=== PATIENT | female | born 1955 | race Caucasian/White ===

== ENCOUNTER 2020-03-28 08:00 | Outpatient (CLI) | payer MEDICARE, MEDICAID, SELFPAY ==
--- NOTE | 2020-03-28 08:10 | USCV_ITS ---
Saskia Carrero Age: 64 Gender: F : 1955 Exam Date: 03/28/2020 08:22 Ordering Phys: Jm Marlow DO Technologist: Martha Chavez [place] [facility] [place]: EDEMA HISTORY: Leg swelling. PROCEDURES: Venous duplex imaging was performed in bilateral lower extremities. The following venous structures were evaluated: common femoral vein, profunda vein, proximal portion of the greater saphenous vein, superficial femoral vein, and the popliteal vein. In addition, the posterior tibial and peroneal trunk were evaluated. Serial compression, augmentation maneuvers, and spectral Doppler flow evaluation were performed. FINDINGS: No DVT seen in any vessel examined. CONCLUSIONS Negative bilateral lower extremity deep venous ultrasound. Dr. Dorothea Hennessy MD (Electronically Signed) Final Date: 28 March 2020 09:26 S
== END 2020-03-28 08:01 | disposition home or self-care (01) ==
LOC: RAD 08:08
PROVIDERS: Family Provider Family Medicine; Visit Provider Family Medicine
DX: R60.9 Edema, unspecified (principal); I73.00 Raynaud's syndrome without gangrene; R73.9 Hyperglycemia, unspecified; I73.9 Peripheral vascular disease, unspecified; E03.9 Hypothyroidism, unspecified; M79.89 Other specified soft tissue disorders
CPT/HCPCS: 93970

== ENCOUNTER 2020-03-29 08:31 | Outpatient (CLI) | payer MEDICARE, MEDICAID, SELFPAY ==
--- NOTE | 2020-03-29 08:52 | USCV_ITS ---
Saskia Carrero Age: 64 Gender: F : 1955 Exam Date: 03/29/2020 08:42 Ordering Phys: Jm Marlow DO Technologist: Exam Location[place] [facility] [place]ication: RAYNAUD'S, HYPERTENSION, PVD RIGHT LEFT Brachial 170.00 mmHg Brachial 171.00 mmHg Pressure (mmHg) Waveform Pressure (mmHg) Waveform TALENT ACQUISITION LEAD 200.00 174.00 DPA 1.59 Ankle/Brachial Index 1.17 133.00 Pre-Exercise Toe Pressure 159.00 0.78 Pre-Exercise Toe/Brachial Index 0.93 FINDINGS Supernormal resting RUTH on the right side Normal resting RUTH on the left side Normal resting TBIs bilaterally CONCLUSIONS No evidence of any significant arterial obstruction, based on the above findings. Dr Xavier Escalante MD [facility] (Electronically Signed) Final Date: 29 March 2020 17:56 S
== END 2020-03-29 08:32 | disposition home or self-care (01) ==
LOC: RAD 08:37
PROVIDERS: PCP Family Medicine; Visit Provider Family Medicine
DX: R60.9 Edema, unspecified (principal); I73.00 Raynaud's syndrome without gangrene; R73.9 Hyperglycemia, unspecified; I10 Essential (primary) hypertension; I73.9 Peripheral vascular disease, unspecified; E03.9 Hypothyroidism, unspecified
CPT/HCPCS: 93922

== ENCOUNTER → 2021-07-03 13:27 | Outpatient (BNVA) | payer MEDICARE, MEDICAID, SELFPAY | PROVIDERS: PCP Family Medicine; Visit Provider Nurse Practitioner Family | DX: R32 Unspecified urinary incontinence (principal); R39.16 Straining to void; R33.9 Retention of urine, unspecified | CPT/HCPCS: 81003 ==

== ENCOUNTER → 2021-08-07 13:24 | Outpatient (BNVA) | payer MEDICARE, MEDICAID, SELFPAY | PROVIDERS: PCP Family Medicine; Visit Provider Nurse Practitioner Family | DX: R33.9 Retention of urine, unspecified (principal) | CPT/HCPCS: 81003 ==

== ENCOUNTER → 2022-03-19 12:55 | Outpatient (BNVA) | payer MEDICARE, MEDICAID, SELFPAY | PROVIDERS: PCP Family Medicine; Visit Provider Urology | DX: R33.9 Retention of urine, unspecified (principal); R39.16 Straining to void; R32 Unspecified urinary incontinence | CPT/HCPCS: 51798; 81003; 99213 ==

== ENCOUNTER 2022-05-22 11:41 | Observation (INO) | payer MEDICARE, MEDICAID, SELFPAY ==
[2022-05-22] VITALS (32 sets, daily range): BP systolic 137–186; BP diastolic 66–98; PULSE 48–79; RESP 8–22; TEMP 36.3–36.8; O2SAT 96–100
--- NOTE | 2022-05-22 11:56 | W.ED.ARRPALP ---
HPI - Arrhythmia/Palpitations General: Chief Complaint: Arrhythmia/Palpitations Stated Complaint: AFIB Time Seen by Provider: 05/22/22 11:53 History of Present Illness: Ms. Carrero is a 66-year-old lady with complex past medical history including history of brain tumor status postresection, history of Silvia's, history of ophthalmologic issues who presents to the emergency department due to new onset A. fib. She was scheduled for a orbital decompression by surgery in [place] earlier today however during preoperative evaluation was found to have atrial fibrillation which she does not have a history of. She does not know specifically when this started however for approximately 1 month has had more dyspnea on exertion and shortness of breath at rest. Additionally she has noticed more leg swelling as well as occasional fluttering sensation in her chest if she is real still. She has had to sleep upright in recliner due to symptoms. Overall course has worsened. Intensity is moderate. No other specific changes in health, exacerbating, or alleviating factors identified. Onset (ago): week(s) Duration: constant Severity: moderate Review of Systems General: Reports: 10 or more systems reviewed and unremarkable except in HPI and below PFSH ED PFSH: Medical History (Updated 05/25/22 @ 16:57 by Barry Enriquez NP) Cardiomegaly Edema, peripheral Elevated brain natriuretic peptide (BNP) level Glaucoma Silvia's disease History of brain tumor REMOVAL Incomplete bladder emptying New onset a-fib Raynaud disease Sjogrens syndrome Straining on urination Urinary incontinence Post void leakage consistent with Vaginal Voiding. Better with positional changes UUI: better with volume management Surgical History History of colon resection Hx of eye surgery MULTIPLE EYE SURGERIES Hx of hysterectomy Hx of skin graft Family History Father , AT AGE 37 HEART ATTACK CAD (coronary artery disease) MOTHER AT AGE 87 FLU Social History Smoking and tobacco status: never smoked Alcohol intake: former Marital status: Single Current occupational status: disabled History of recent travel: No Physical Exam Const: COMMON NORMALS: alert GENERAL APPEARANCE: cooperative and well developed HENMT: COMMON NORMALS: normocephalic and atraumatic HEAD & SCALP: normocephalic and atraumatic THROAT: posterior oropharynx normal Eye: COMMON NORMALS: conjunctivae normal CONJUNCTIVA: Yes conjunctivae normal SCLERA: sclerae normal Neck/C-Spine: COMMON NORMALS: supple GENERAL: Yes trachea midline Resp: COMMON NORMALS: clear to auscultation bilaterally EFFORT & INSPECTION: Yes able to speak in complete sentences AUSCULTATION: clear to auscultation bilaterally Cardio: RATE: bradycardic RHYTHM: abnormal rhythm irregularly irregular GI: COMMON NORMALS: Soft to palpation PALPATION: Yes Soft to palpation and No Tenderness to palpation present (GI) PERCUSSION: normal to percussion Extremity: GENERAL: Yes normal exam except as noted and Yes edema (1+ edema) Neuro: COMMON NORMALS: moves all extremities SENSORIUM/ORIENTATION: Yes alert and No Orientation impaired Psych: COMMON NORMALS: mental status grossly normal and Normal thought process present THOUGHT PROCESS: Normal thought process present Course ED course: - Patient was seen and evaluated by me at bedside - Patient placed on cardiac monitors, IV access obtained - Initial evaluation notable for exam as above. - Labs and xrays personally interpreted by me. EKG is notable for atrial fibrillation with slow ventricular response, nonspecific ST segment abnormalities. No STEMI. - Labs notable for no acute hematologic or metabolic abnormalities to explain symptoms. Delta troponin negative. BNP is elevated. In the absence of symptoms urinalysis likely not consistent with UTI. - Imaging notable for cardiomegaly without lobar consolidation or pneumothorax. CT head negative for acute intracranial hemorrhage or mass. - Upon serial reexamination after treatment the patient was similar - Based on patient history, evaluation, and testing as interpreted the most likely cause of the patient's condition is new onset A. fib - The results of ED evaluation were discussed with the patient including plan for admission due to requirement for level of care not available if discharged to prevent significant worsening/deterioration. - Admitting service was contacted and Dr Hernandez with the hospitalist service agreed to admit the patient - Patient was admitted without further deterioration or significant events. Note: Click bubbles or prepopulated alejandre in note writing are used for assistance with data collection and billing and are inherently more limited than narrative and other text portions of this note. Please use narrative for additional clinical history and defer to narrative/free test for any case of contradictory information. If information appears in only free text or click bubble it should be considered present or absent as reported. Please contact note technical publications writer for clarifications of clinical information or contradictory information. MDM is a brief summary, contradictory or erroneous seeming information should be clarified and full note should be reviewed. Vital Signs: Vital signs: Vital Signs Temperature 98.1 F 05/23/22 08:00 Pulse Rate 58 L 05/23/22 14:24 Respiratory Rate 16 05/23/22 14:24 Blood Pressure 155/88 05/23/22 14:24 Pulse Oximetry 96 05/23/22 14:24 Oxygen Delivery Me thod 05/23/22 12:00 MDM - Arrhythmia/Palpitations Medical Decision Making 66-year-old lady presenting with generalized items about new A. fib with slow ventricular response. admitted for further management. Medical Records I reviewed the patient's medical records. Lab Data I reviewed the patient's lab results. : 05/23/22 04:17 05/23/22 04:17 Radiology Impressions Chest X-Ray 05/22/22 12:33 Impression: Cardiomegaly. Head CT 05/22/22 14:16 IMPRESSION: No acute intracranial abnormality. Chronic microvascular ischemic changes. Venous Duplex 05/23/22 17:24 IMPRESSION: Positive for deep venous thrombosis within the right popliteal vein. ADDENDUM: 05/23/22 0844 THIS REPORT CONTAINS FINDINGS THAT MAY BE CRITICAL TO PATIENT CARE. The findings were verbally communicated via telephone conference with BI HERNANDEZ at 8:43 AM CDT on 05/23/2022. The findings were acknowledged and understood. Laboratory Results WBC 5.7 10^3/uL (4.0-10.0) 05/22/22 12:39 RBC 4.60 10^6/uL (4.1-5.3) 05/22/22 12:39 Hgb 13.5 g/dL (11.5-15.3) 05/22/22 12:39 Hct 42.7 % (37.0-47.0) 05/22/22 12:39 MCV 92.8 fl (81-99) 05/22/22 12:39 MCH 29.3 pg (28.0-34.0) 05/22/22 12:39 MCHC 31.6 g/dL (30.0-36.0) 05/22/22 12:39 RDW 12.8 % (12.1-15.1) 05/22/22 12:39 Plt Count 203 10^3/cmm (130-400) 05/22/22 12:39 MPV 10.0 fL (7.4-10.4) 05/22/22 12:39 Neut % (Auto) 61.8 % 05/22/22 12:39 Lymph % (Auto) 25.1 % 05/22/22 12:39 Clinch % (Auto) 10.4 % 05/22/22 12:39 Eos % (Auto) 1.8 % 05/22/22 12:39 Baso % (Auto) 0.5 % 05/22/22 12:39 Neut # (Auto) 3.50 10^3/uL (1.8-7.7) 05/22/22 12:39 Lymph # (Auto) 1.4 10^3/uL (0.8-4.8) 05/22/22 12:39 Clinch # (Auto) 0.6 10^3/uL (0.2-0.9) 05/22/22 12:39 Eos # (Auto) 0.1 10^3/uL (0.0-0.8) 05/22/22 12:39 Baso # (Auto) 0.0 10^3/uL (0.0-0.1) 05/22/22 12:39 Nucleated RBC % (auto) 0 % 05/22/22 12:39 Nucleated RBCs # 0.0 /100WBC 05/22/22 12:39 Sodium 141 mmol/L (136-145) 05/22/22 12:39 Potassium 3.9 mmol/L (3.5-5.1) 05/22/22 12:39 Chloride 107 mmol/L (98-107) 05/22/22 12:39 Carbon Dioxide 24 mmol/L (22-29) 05/22/22 12:39 Anion Gap 13.9 (5-19) 05/22/22 12:39 BUN 15 mg/dL (8-23) 05/22/22 12:39 Creatinine 0.8 mg/dL (0.5-0.9) 05/22/22 12:39 GFR Calculation 72.0 mL/min (90-130) L 05/22/22 12:39 Glucose 84 mg/dL (65-115) 05/22/22 12:39 Calculated Osmolality 292 mOsm/kg (285-295) 05/22/22 12:39 Calcium 9.7 mg/dL (8.5-10.5) 05/22/22 12:39 Magnesium 1.6 mg/dL (1.7-2.3) L 05/22/22 12:39 Total Bilirubin 0.4 mg/dL (0.15-1.2) 05/22/22 12:39 AST 16 U/L (0-32) 05/22/22 12:39 ALT 9 U/L (0-33) 05/22/22 12:39 Alkaline Phosphatase 68 IU/L (35-105) 05/22/22 12:39 Troponin T Baseline 13 ng/L (0-10) H 05/22/22 12:39 Troponin T 120 Minute 13.86 ng/L (0-10) H 05/22/22 14:35 Delta Troponin T 0.86 ABS# (0-10) 05/22/22 14:35 NT-Pro-B Natriuret Pep 1126 pg/mL (0-125) H 05/22/22 12:39 Total Protein 7.1 g/dL (6.6-8.7) 05/22/22 12:39 Albumin 4.1 g/dL (3.5-5.2) 05/22/22 12:39 Globulin 3.0 g/dL (1.3-4.6) 05/22/22 12:39 TSH 0.69 uIU/mL (0.27-4.20) 05/22/22 12:39 Urine Color Yellow (Yellow) 05/22/22 15:05 Urine Appearance Clear (CLEAR) 05/22/22 15:05 Urine pH 7 (5-7) 05/22/22 15:05 Ur Specific [place] 1.005 (1.005-1.030) 05/22/22 15:05 Urine Protein Neg (Negative) 05/22/22 15:05 Urine Glucose (UA) Norm (Normal) 05/22/22 15:05 Urine Ketones Negative (Negative) 05/22/22 15:05 Urine Blood Neg (Negative) 05/22/22 15:05 Urine Nitrate Negative (Negative) 05/22/22 15:05 Urine Bilirubin Neg (Negative) 05/22/22 15:05 Urine Urobilinogen Norm mg/dL (Negative) 05/22/22 15:05 Ur Leukocyte Esterase 1+ (Negative) H 05/22/22 15:05 Urine RBC 0-4 /hpf (0-2) H 05/22/22 15:05 Urine WBC 5-10 /hpf (0-5) H 05/22/22 15:05 Ur Squamous Epith Cells 0-4 /hpf (0-5) H 05/22/22 15:05 Amorphous Sediment Not Reportable 05/22/22 15:05 Urine Bacteria None /hpf (NONE) 05/22/22 15:05 Discharge Plan Discharge Patient Disposition: Placed in Observation Admit Provider: Bi Hernandez Clinical Impression: New onset a-fib, Edema, peripheral, Elevated brain natriuretic peptide (BNP) level, Cardiomegaly Discharge Diet: Cardiac Coding Level of Care Code ED Intake Nurse for Chg Fwd Exam Comprehensive
--- NOTE | 2022-05-22 12:14 | ECG_ITS ---
[facility] Test Date: 2022-05-22 Pat Name: Nancy Carrero Department: Room: Gender: Female Salad Chef: : 1955 Requested By: Andrew Baez Order Number: [id number] Isaac MD: Xavier Escalante M.D. Measurements Intervals [place] Rate: 55 P: [place]: QRS: -15 QRSD: 81 T: 21 QT: 439 QTc: 422 Interpretive Statements ATRIAL FIBRILLATION WITH SLOW VENTRICULAR RESPONSE LOW QRS VOLTAGE IN PRECORDIAL LEADS [QRS DEFLECTION < 1.0 mV IN CHEST LEADS] POSSIBLE ANTERIOR MYOCARDIAL INFARCTION , PROBABLY OLD [30 ms Q WAVE IN V3/V4, OR R < 0.2 mV IN V4] ABNORMAL RHYTHM ECG No previous ECG available for comparison Electronically Signed On 05-23-2022 18:49:59 CDT by Xavier Escalante M.D. [email or web address] [email or web address] Softwareeast [email or web address].Ampulse/store/[id number] f
--- NOTE | 2022-05-22 12:33 | XR_ITS ---
WS: [id number] Portable AP upright chest, 05/22/2022 Clinical Data: sob, new afib Comparison: None. Findings: No nodules, masses or effusions are seen. The heart is slightly enlarged. The pulmonary vas cularity is not increased. No pneumonia or pneumothorax is seen. Monitor leads are on the chest wall. XR/XR chest 1V portable [id number] Impression: Cardiomegaly.
[2022-05-22 12:48] LABS: Basophils % 0.5 %; Eosinophils # 0.1 10^3/uL (0.0-0.8); Eosinophils % 1.8 %; Hematocrit 42.7 % (37.0-47.0); Hemoglobin 13.5 g/dL (11.5-15.3); Lymphocytes # 1.4 10^3/uL (0.8-4.8); Lymphocytes % 25.1 %; Mean Corpuscular HGB Conc 31.6 g/dL (30.0-36.0); Mean Corpuscular Hemoglobin 29.3 pg (28.0-34.0); Mean Corpuscular Volume 92.8 fl (81-99); Monocytes # 0.6 10^3/uL (0.2-0.9); Monocytes % 10.4 %; Neutrophils % 61.8 %; Nucleated Red Blood Cells % 0 %; Platelet Count 203 10^3/cmm (130-400); Red Cell Distribution Width 12.8 % (12.1-15.1); White Blood Count 5.7 10^3/uL (4.0-10.0)
[2022-05-22 13:20] LABS: Troponin(5th) Baseline 13 ng/L (0-10)
[2022-05-22 13:29] LABS: Alanine Aminotransferase 9 U/L (0-33); Albumin Level 4.1 g/dL (3.5-5.2); Alkaline Phosphatase 68 IU/L (35-105); Anion Gap 13.9 (5-19); Aspartate Amino Transferase 16 U/L (0-32); Blood Urea Nitrogen 15 mg/dL (8-23); Calcium 9.7 mg/dL (8.5-10.5); Carbon Dioxide 24 mmol/L (22-29); Chloride 107 mmol/L (98-107); Creatinine Clr Calc Pharmacy 78.5369; Glucose 84 mg/dL (65-115); Magnesium 1.6 mg/dL (1.7-2.3); NT Pro B Type Natriuretic Pept 1126 pg/mL (0-125); Osmolality Calculated 292 mOsm/kg (285-295); Potassium 3.9 mmol/L (3.5-5.1); Sodium 141 mmol/L (136-145); Thyroid Stimulating Hormone 0.69 uIU/mL (0.27-4.20); Total Bilirubin 0.4 mg/dL (0.15-1.2); Total Protein 7.1 g/dL (6.6-8.7)
--- NOTE | 2022-05-22 14:16 | CTR_ITS ---
PROCEDURE INFORMATION: Exam: CT Head Without Contrast Exam date and time: 05/22/2022 2:45 PM Age: 66 years old Clinical indication: Pain; Headache not specified; Prior surgery; Surgery date: 6+ months; Surgery type: Brain tumor TECHNIQUE: Imaging protocol: Computed tomography of the head without contrast. Radiation optimization: All CT scans at this facility use at least one of these dose optimization techniques: automated exposure control; mA and/or kV adjustment per patient size (includes targeted exams where dose is matched to clinical indication); or iterative reconstruction. COMPARISON: No relevant prior studies available. RADIATION DOSE METRICS: Total DLP (mGy-cm): 1117.58 FINDINGS: Brain: Encephalomalacia in the left cerebellum. There are mild periventricular and subcortical lucencies consistent with chronic microvascular ischemic changes. The kurtz-white differentiation is maintained. No hemorrhage. No edema. Evidence of prior left occipital craniectomy Cerebral ventricles: No ventriculomegaly. Paranasal sinuses: Visualized sinuses are unremarkable. No fluid levels. Mastoid air cells: Visualized mastoid air cells are well aerated. Orbital cavities: Bilateral cataract surgery. Bones/joints: See Brain finding. Soft tissues: Unremarkable. CT/CT head wo con* [id number] IMPRESSION: No acute intracranial abnormality. Chronic microvascular ischemic changes.
--- NOTE | 2022-05-22 14:33 | ECG_ITS ---
[facility] Test Date: 2022-05-22 Pat Name: Nancy Carrero Department: Room: Gender: Female Pharmacy Benefits Coordinator: : 1955 Requested By: Andrew Baez Order Number: [id number] Isaac MD: Xavier Escalante M.D. Measurements Intervals [place] Rate: 52 P: [place]: QRS: -17 QRSD: 79 T: 14 QT: 434 QTc: 406 Interpretive Statements ATRIAL FIBRILLATION WITH SLOW VENTRICULAR RESPONSE LOW QRS VOLTAGE IN PRECORDIAL LEADS [QRS DEFLECTION < 1.0 mV IN CHEST LEADS] POSSIBLE ANTERIOR MYOCARDIAL INFARCTION , PROBABLY OLD [30 ms Q WAVE IN V3/V4, OR R < 0.2 mV IN V4] ABNORMAL RHYTHM ECG Compared to ECG 05/22/2022 12:14:19 No significant changes Electronically Signed On 05-23-2022 19:15:26 CDT by Xavier Escalante M.D. [email or web address].[email or web address]/[id number]
[2022-05-22 15:15] LABS: Troponin 5 2HR 13.86 ng/L (0-10)
[2022-05-22 15:20] LABS: Troponin 5 2HR Delta 0.86 ABS# (0-10)
[2022-05-22 16:01] LABS: Add Urine Microscopic? YES; Bilirubin Urine Neg (Negative); Blood Urine Neg (Negative); Glucose Urine UA Norm (Normal); Ketones Urine Negative (Negative); Leukocyte Esterase Urine 1+ (Negative); Nitrate Urine Negative (Negative); Protein Urine Neg (Negative); RBC Urine 0-4 /hpf (0-2); Specific Gravity, Urine 1.005 (1.005-1.030); Squamous Epithelial Cell Urine 0-4 /hpf (0-5); Urine Appearance Clear (CLEAR); Urine Color Yellow (Yellow); Urobilinogen Urine Norm (Negative); pH Urine 7 (5-7)
[2022-05-22 16:02] LABS: Add Urine Culture? No
--- NOTE | 2022-05-22 16:15 | P.HP_ITS ---
Providers/Chief Complaint Primary Care Provider: Jm Marlow DO Chief Complaint: AFIB History of Present Illness Nancy Carrero is a 66 year old female sent to the hospital from her [facility] when anesthesiologist found her A. fib with slow ventricular response. Patient has no vision at all from her left eye, she has tunnel vision with right eye, she has to take all of her eyedrops including antibiotics. Patient has not complained of any shortness of breath or chest pain. She is feeling lethargic and fatigued. No recent diarrhea COVID-related symptoms. She has been experiencing leg cramps. There is edema of her legs present. Daughter is at the bedside no previous history of VA, CHF, coronary stents I would discontinue her clonidine, she was in A. fib slow ventricular response, I would use losartan 100 mg, hydralazine, as per the daughter amlodipine caused significant edema of legs that is why they did not use it and lisinopril caused cough Her PCP started her on clonidine because of limited antihypertensive options she has been using clonidine for the last 2 months She has significant glaucoma which is causing retinopathy Review of Systems Const: Reports: body aches and fatigue Eyes: Reports: change in vision and blurry vision ENMT: Denies: throat pain Card: Reports: irregular heart rhythm Resp: Reports: dyspnea GI: Denies: abdominal pain : Denies: flank pain Musc: Denies: neck pain Skin/Breast: Denies: rash Neuro: Denies: headache(s) Psych: Denies: anxiety Endo: Denies: polyuria Will/Lymph: Denies: easy bruising All/Imm: Denies: urticaria Medications/Allergies Home Medications Medication Instructions Recorded Confirmed Last Taken Type fenofibrate nanocrystallized 48 mg 48 mg PO DAILY 06/17/21 05/22/22 05/21/22 History tablet fluticasone propionate 50 2 spray intranasal DAILY PRN Nasal 06/17/21 05/22/22 Unknown History mcg/actuation nasal Congestion spray,suspension sildenafil (pulm.hypertension) 20 20 mg PO BID 06/17/21 05/22/22 05/22/22 History mg tablet acetaminophen 325 mg tablet 325 mg PO QID PRN Pain 07/03/21 05/22/22 Unknown History (Tylenol) ascorbic acid (vitamin C) 1,000 mg 1,000 mg PO DAILY 07/03/21 05/22/22 05/22/22 History tablet aspirin 81 mg tablet,delayed 81 mg PO DAILY 07/03/21 05/22/22 05/21/22 History release (Adult Low Dose Aspirin) cholecalciferol (vitamin D3) 125 125 mcg PO DAILY 07/03/21 05/22/22 05/22/22 History mcg (5,000 unit) capsule multivitamin 1 tab PO DAILY 07/03/21 05/22/22 05/22/22 History omega-3 fatty acids 1,000 mg 1,000 mg PO DAILY 07/03/21 05/22/22 05/22/22 History capsule omeprazole 40 mg capsule,delayed 40 mg PO DAILY 07/03/21 05/22/22 05/22/22 History release vitamin B complex (Complex B-100) 1 tab PO DAILY 07/03/21 05/22/22 05/22/22 History levothyroxine 150 mcg capsule 150 mcg PO DAILY 08/07/21 05/22/22 05/22/22 History acetazolamide 250 mg tablet 250 mg PO BID 03/19/22 05/22/22 05/22/22 History clonidine HCl 0.1 mg tablet 0.1 mg PO Q12H 03/19/22 05/22/22 05/22/22 History brimonidine 0.2 % eye drops 1 drp ophthalmic (eye) BID 05/22/22 05/22/22 05/22/22 History brimonidine 0.2 %-timolol 0.5 % 1 drp ophthalmic (eye) DAILY 05/22/22 05/22/22 05/22/22 History eye drops (Combigan) dorzolamide 22.3 mg-timolol 6.8 1 drp ophthalmic (eye) BID 05/22/22 05/22/22 05/22/22 History mg/mL eye drops (Cosopt) netarsudil 0.02 %-latanoprost 1 drp ophthalmic (eye) BEDTIME 05/22/22 05/22/22 05/21/22 History 0.005 % eye drops (Rocklatan) polymyxin B sulfate 10,000 1 drp ophthalmic (eye) BID 05/22/22 05/22/22 05/22/22 History unit-trimethoprim 1 mg/mL eye drops prednisolone acetate 1 % eye 1 drp ophthalmic (eye) DAILY 05/22/22 05/22/22 05/22/22 History drops,suspension tamsulosin 0.4 mg capsule 0.4 mg PO DAILY 05/22/22 05/22/22 05/22/22 History Allergies Allergy/AdvReac Type Severity Reaction Status Date / Time No Known Allergies Allergy Unverified 03/19/22 13:14 PFSH Acute PFSH: Medical History Glaucoma Silvia's disease History of brain tumor REMOVAL Incomplete bladder emptying Raynaud disease Sjogrens syndrome Straining on urination Urinary incontinence Post void leakage consistent with Vaginal Voiding. Better with positional changes UUI: better with volume management Surgical History History of colon resection Hx of eye surgery MULTIPLE EYE SURGERIES Hx of hysterectomy Hx of skin graft Family History Father , AT AGE 37 HEART ATTACK CAD (coronary artery disease) MOTHER AT AGE 87 FLU Social History Smoking and tobacco status: never smoked Alcohol intake: former Marital status: Single Current occupational status: disabled History of recent travel: No Vitals/I&O/Wt Last Vital Signs Temp 97.4 F L 05/22/22 12:08 Pulse 53 L 05/22/22 16:00 Resp 15 05/22/22 16:00 BP 184/88 05/22/22 16:00 Pulse Ox 99 05/22/22 16:00 O2 Del Method 05/22/22 13:01 Weight last 48 hrs Weight 88.451 kg Physical Exam Narrative: Pleasant cooperative female She has tunnel vision with right eye Right eye redness is noted No active crusting Variable S1-S2 heart rate in 70s, A. fib No RVR Patient is able to walk with assistance Edema of legs 2+ Abdomen soft nondistended nontender No strokelike features Data : 05/22/22 12:39 05/22/22 12:39 A&P Assessment and plan (1) New onset a-fib: Status: Acute (2) Edema, peripheral: Status: Acute (3) Elevated brain natriuretic peptide (BNP) level: Status: Acute (4) Cardiomegaly: Status: Acute (5) Incomplete bladder emptying: Status: Acute Plan Patient carry history of Raynaud's phenomenon has primary hypertension take sildenafil Uncontrolled/difficult to control blood pressure She is on clonidine, losartan, acetazolamide carry significant history of glaucoma with retinopathy Came in with fatigue lethargy and A. fib slow ventricular I would obtain echo check TSH, check magnesium level Diurese her gently as she is already on Diamox, I will give her low-dose Lasix I will hold her clonidine it can cause bradycardia as well I would use losartan, add hydralazine Patient is full code Nondiabetic Continue levothyroxine Glaucoma continue her eyedrops including antibiotic DVT prophylaxis not indicated I am starting her on Eliquis check venous Doppler, D-dimer Attestations Medical Necessity Statement*: Discharge tomorrow if clinically well Time Spent in Patient Care: 40 Coding Level of Care Code Acute Early Childhood Associate for Chg Fwd Diagnoses New onset a-fib I48.91 Edema, peripheral R60.9 Elevated brain natriuretic peptide (BNP) level R79.89 Cardiomegaly I51.7 Incomplete bladder emptying R33.9
--- NOTE | 2022-05-22 16:46 | PC.NURSE ---
Report called to MARY Hummel. Admitting physician at bedside, tech will transport to [facility]
[2022-05-22] MEDS: hyDRALAzine 25 mg Tablet PO ×2 (17:32→20:30)
[2022-05-22] MEDS: magnesium oxide 400 mg tablet PO (17:32)
[2022-05-22] MEDS: acetaZOLAMIDE 250 mg Tablet PO (17:32)
[2022-05-22] MEDS: apixaban 5 mg Tablet PO (17:39)
[2022-05-22 17:50] LABS: D Dimer 0.69 ug/mIFEU (0-0.59)
--- NOTE | 2022-05-22 18:33 | ECG_ITS ---
[facility] Test Date: 2022-05-22 Pat Name: Nancy Carrero Department: Room: 252 Gender: Female Renal Medicine Specialist: : 1955 Requested By: Andrew Baez Order Number: [id number] Isaac MD: Xavier Escalante M.D. Measurements Intervals [place] Rate: 61 P: [place]: QRS: -13 QRSD: 78 T: 34 QT: 406 QTc: 412 Interpretive Statements ATRIAL FIBRILLATION LOW QRS VOLTAGE IN PRECORDIAL LEADS [QRS DEFLECTION < 1.0 mV IN CHEST LEADS] PATTERN CONSISTENT WITH PULMONARY DISEASE Compared to ECG 05/22/2022 14:27:39 Myocardial infarct finding no longer present Electronically Signed On 05-23-2022 19:21:24 CDT by Xaveir Escalante M.D. [id number]
[2022-05-22 19:48] LABS: Troponin 5 6HR 14.55 ng/L (0-10)
[2022-05-22 19:51] LABS: Troponin 5 6HR Delta 1.55 ng/L (0-12)
[2022-05-22] MEDS: acetaminophen 325 mg Tablet PO (20:30)
[2022-05-23] VITALS (7 sets, daily range): BP systolic 155–196; BP diastolic 88–123; PULSE 50–77; RESP 16–18; TEMP 36.7–36.8; O2SAT 96–99
[2022-05-23] MEDS: acetaminophen 325 mg Tablet PO (02:20)
[2022-05-23 05:14] LABS: Basophils % 0.2 %; Eosinophils # 0.1 10^3/uL (0.0-0.8); Eosinophils % 2.4 %; Hematocrit 43.8 % (37.0-47.0); Hemoglobin 14.4 g/dL (11.5-15.3); Lymphocytes # 1.6 10^3/uL (0.8-4.8); Lymphocytes % 26.5 %; Mean Corpuscular HGB Conc 32.9 g/dL (30.0-36.0); Mean Corpuscular Hemoglobin 29.6 pg (28.0-34.0); Mean Corpuscular Volume 90.1 fl (81-99); Mean Platelet Volume 10.3 fL (7.4-10.4); Monocytes # 0.6 10^3/uL (0.2-0.9); Monocytes % 10.8 %; Neutrophils # 3.51 10^3/uL (1.8-7.7); Neutrophils % 59.9 %; Nucleated Red Blood Cells % 0 %; Platelet Count 217 10^3/cmm (130-400); Red Blood Count 4.86 10^6/uL (4.1-5.3); Red Cell Distribution Width 12.7 % (12.1-15.1); White Blood Count 5.9 10^3/uL (4.0-10.0)
[2022-05-23 05:35] LABS: Anion Gap 16.5 (5-19); Blood Urea Nitrogen 13 mg/dL (8-23); Carbon Dioxide 22 mmol/L (22-29); Chloride 107 mmol/L (98-107); Glucose 90 mg/dL (65-115); Magnesium 1.7 mg/dL (1.7-2.3); Osmolality Calculated 294 mOsm/kg (285-295); Potassium 3.5 mmol/L (3.5-5.1); Sodium 142 mmol/L (136-145)
[2022-05-23] MEDS: perflutren protein-a microsphr 0.22 mg/mL SDV 3 mL IV (08:55)
[2022-05-23] MEDS: pantoprazole DR 40 mg Tablet PO (09:00)
[2022-05-23] MEDS: acetaZOLAMIDE 250 mg Tablet PO (09:00)
[2022-05-23] MEDS: losartan 50 mg Tablet 100 MG PO (09:00)
[2022-05-23] MEDS: hyDRALAzine 25 mg Tablet PO (09:00)
[2022-05-23] MEDS: aspirin 81 mg EC Tablet PO (09:00)
[2022-05-23] MEDS: isosorbide mononitrate ER 30 mg Tablet PO (09:00)
[2022-05-23] MEDS: levothyroxine 150 mcg Tablet PO (09:01)
[2022-05-23] MEDS: apixaban 5 mg Tablet PO (09:01)
[2022-05-23] MEDS: magnesium oxide 400 mg tablet PO (09:01)
[2022-05-23] MEDS: FUROsemide 20 mg Tablet PO (09:01)
--- NOTE | 2022-05-23 11:02 | PM.PN ---
Subjective Subjective: Patient is hypertensive DVT was found I would keep her 1 more day her pressures not well controlled A. fib with slow ventricular response Vitals/I&O/Wt Last Vital Signs Temp 98.1 F 05/23/22 08:00 Pulse 50 L 05/23/22 08:00 Resp 16 05/23/22 08:00 BP 196/123 05/23/22 08:00 Pulse Ox 97 05/23/22 08:00 O2 Del Method 05/23/22 08:00 05/22/22 05/23/22 05/23/22 22:59 06:59 14:59 Intake Total 150 / 150 200 / 350 120 / 120 Output Total 700 / 700 1450 / 2150 Balance -550 / -550 -1250 / -1800 120 / 120 Weight last 48 hrs Weight 86.545 kg Weight 88.451 kg Physical Exam Narrative: Patient is laying supine No new focal deficit Awake alert Edema of legs still present Daughter is at the bedside Abdomen soft S1, S2 variable A. fib with bradycardia No audible stridor or wheezing Data : 05/23/22 04:17 05/23/22 04:17 A&P Assessment and plan (1) New onset a-fib: Status: Acute (2) Edema, peripheral: Status: Acute (3) Elevated brain natriuretic peptide (BNP) level: Status: Acute Plan New onset A. fib Slow ventricular response No need of AV odette blocking agent I will start her on Eliquis therapeutic regimen for her DVT Echo, could not comment on the ejection fraction because of poor acoustic window however grossly left ventricular looks fine blood ventricle mild change in EF, For blood pressure management I will keep her here 1 more day Boris Vascor is 3, she will need Eliquis 5 mg twice daily, she will stop Eliquis 5 days before eye surgery Full code Cardiac diet Positive DVT I have added Imdur, hydralazine, on top of her losartan, might have to continue clonidine because of rebound hypertension, she is at risk of polypharmacy which I explained to the family as well Attestations Medical Necessity Statement*: I will keep her here 1 more day Time Spent in Patient Care: 30 Coding Level of Care Code Acute Customer Solutions Specialist for Chg Fwd Diagnoses New onset a-fib I48.91 Edema, peripheral R60.9 Elevated brain natriuretic peptide (BNP) level R79.89
--- NOTE | 2022-05-23 12:29 | PM.DCS ---
Discharge Providers Date of Admission: 05/22/22 15:36 Date of Discharge: May 23, 2022 Attending Provider at Admission: Bi Garcia MD Attending Provider at Discharge: Bi Garcia MD Primary Care Provider: Jm Marlow DO Diagnoses at Discharge Discharge Diagnosis (1) New onset a-fib: Status: Acute (2) Edema, peripheral: Status: Acute (3) Elevated brain natriuretic peptide (BNP) level: Status: Acute Reason for Visit Reason for Visit: AFIB Hospital Course Hospital Course 66-year female who presented to the hospital from her ophthalmology clinic because she was diagnosed with A. fib by her anesthesiologist and heart rate was slow, I discontinued her clonidine at the time of discharge, heart rate improved for her blood pressure management I have added hydralazine 25 mg 3 times daily along with losartan 100 mg daily. Our options are limited because of her use of sildenafil I cannot use nitrates, because of her glaucoma she is on acetazolamide I am reluctant to add Lasix at this point. We could not get a good image forher left ventricle ejection fraction, I will give her MUGA scan and prescription for outpatient, I have also recommended her to see a grain cleaner for blood pressure management. I have discontinued clonidine at the time of discharge because of slow ventricular response. Event monitor for 3 weeks. Patient and family do not want to stay in the hospital longer after antihypertensive regimen this morning her blood pressure is 155/88 mmHg, heart rate in 50s-77. She has been diagnosed with DVT. She was get Eliquis 10 mg twice daily for 7 days and then 5 mg twice daily onwards she needs to stop taking Eliquis 5 days before her eye surgery Physical Exam Narrative: Patient is laying supine No new foca l deficit Awake al ert Edema of legs still present Daug hter is at the bed side Abdomen soft S1, S2 variable A. fib with bradycar yoshi No audible str idor or wheezing Discharge Data Studies Completed and Pending Completed Studies During Hospitalization Category Date Time Status CT head wo con* [id number] Urgent Cat Scan 05/22/22 14:16 Completed XR chest 1V portable [id number] Urgent Exams 05/22/22 12:33 [place] [id number] Routine Ultrasound 05/23/22 17:24 Completed CV. echo wo/w contrast [id number] Routine Ultrasound 05/23/22 16:47 Completed Pending at discharge Category Date Time Status Basic Metabolic Panel AM LABS Lab 05/24/22 04:00 Ordered Radiology Impressions Chest X-Ray 05/22/22 12:33 Impression: Cardiomegaly. Head CT 05/22/22 14:16 IMPRESSION: No acute intracranial abnormality. Chronic microvascular ischemic changes. Venous Duplex 05/23/22 17:24 IMPRESSION: Positive for deep venous thrombosis within the right popliteal vein. ADDENDUM: 05/23/22 0844 THIS REPORT CONTAINS FINDINGS THAT MAY BE CRITICAL TO PATIENT CARE. The findings were verbally communicated via telephone conference with BI GARCIA at 8:43 AM CDT on 05/23/2022. The findings were acknowledged and understood. Laboratory Results WBC 5.9 10^3/uL (4.0-10.0) 05/23/22 04:17 RBC 4.86 10^6/uL (4.1-5.3) 05/23/22 04:17 Hgb 14.4 g/dL (11.5-15.3) 05/23/22 04:17 Hct 43.8 % (37.0-47.0) 05/23/22 04:17 MCV 90.1 fl (81-99) 05/23/22 04:17 MCH 29.6 pg (28.0-34.0) 05/23/22 04:17 MCHC 32.9 g/dL (30.0-36.0) 05/23/22 04:17 RDW 12.7 % (12.1-15.1) 05/23/22 04:17 Plt Count 217 10^3/cmm (130-400) 05/23/22 04:17 MPV 10.3 fL (7.4-10.4) 05/23/22 04:17 Neut % (Auto) 59.9 % 05/23/22 04:17 Lymph % (Auto) 26.5 % 05/23/22 04:17 [place] % (Auto) 10.8 % 05/23/22 04:17 Eos % (Auto) 2.4 % 05/23/22 04:17 Baso % (Auto) 0.2 % 05/23/22 04:17 Neut # (Auto) 3.51 10^3/uL (1.8-7.7) 05/23/22 04:17 Lymph # (Auto) 1.6 10^3/uL (0.8-4.8) 05/23/22 04:17 [place] # (Auto) 0.6 10^3/uL (0.2-0.9) 05/23/22 04:17 Eos # (Auto) 0.1 10^3/uL (0.0-0.8) 05/23/22 04:17 Baso # (Auto) 0.0 10^3/uL (0.0-0.1) 05/23/22 04:17 Nucleated RBC % (auto) 0 % 05/23/22 04:17 Nucleated RBCs # 0.0 /100WBC 05/23/22 04:17 D-Dimer 0.69 ug/mIFEU (0-0.59) H 05/22/22 16:54 Sodium 142 mmol/L (136-145) 05/23/22 04:17 Potassium 3.5 mmol/L (3.5-5.1) 05/23/22 04:17 Chloride 107 mmol/L (98-107) 05/23/22 04:17 Carbon Dioxide 22 mmol/L (22-29) 05/23/22 04:17 Anion Gap 16.5 (5-19) 05/23/22 04:17 BUN 13 mg/dL (8-23) 05/23/22 04:17 Creatinine 0.8 mg/dL (0.5-0.9) 05/23/22 04:17 GFR Calculation 72.0 mL/min (90-130) L 05/23/22 04:17 Glucose 90 mg/dL (65-115) 05/23/22 04:17 Calculated Osmolality 294 mOsm/kg (285-295) 05/23/22 04:17 Calcium 10.0 mg/dL (8.5-10.5) 05/23/22 04:17 Magnesium 1.7 mg/dL (1.7-2.3) 05/23/22 04:17 Total Bilirubin 0.4 mg/dL (0.15-1.2) 05/22/22 12:39 AST 16 U/L (0-32) 05/22/22 12:39 ALT 9 U/L (0-33) 05/22/22 12:39 Alkaline Phosphatase 68 IU/L (35-105) 05/22/22 12:39 Troponin T Baseline 13 ng/L (0-10) H 05/22/22 12:39 Troponin T 120 Minute 13.86 ng/L (0-10) H 05/22/22 14:35 Delta Troponin T 0.86 ABS# (0-10) 05/22/22 14:35 Troponin T Hi Sens 6Hr 14.55 ng/L (0-10) H 05/22/22 19:00 Troponin T Hi Sens 6Hr Delta 1.55 ng/L (0-12) 05/22/22 19:00 NT-Pro-B Natriuret Pep 1126 pg/mL (0-125) H 05/22/22 12:39 Total Protein 7.1 g/dL (6.6-8.7) 05/22/22 12:39 Albumin 4.1 g/dL (3.5-5.2) 05/22/22 12:39 Globulin 3.0 g/dL (1.3-4.6) 05/22/22 12:39 TSH 0.69 uIU/mL (0.27-4.20) 05/22/22 12:39 Urine Color Yellow (Yellow) 05/22/22 15:05 Urine Appearance Clear (CLEAR) 05/22/22 15:05 Urine pH 7 (5-7) 05/22/22 15:05 Ur Specific Lincoln 1.005 (1.005-1.030) 05/22/22 15:05 Urine Protein Neg (Negative) 05/22/22 15:05 Urine Glucose (UA) Norm (Normal) 05/22/22 15:05 Urine Ketones Negative (Negative) 05/22/22 15:05 Urine Blood Neg (Negative) 05/22/22 15:05 Urine Nitrate Negative (Negative) 05/22/22 15:05 Urine Bilirubin Neg (Negative) 05/22/22 15:05 Urine Urobilinogen Norm mg/dL (Negative) 05/22/22 15:05 Ur Leukocyte Esterase 1+ (Negative) H 05/22/22 15:05 Urine RBC 0-4 /hpf (0-2) H 05/22/22 15:05 Urine WBC 5-10 /hpf (0-5) H 05/22/22 15:05 Ur Squamous Epith Cells 0-4 /hpf (0-5) H 05/22/22 15:05 Amorphous Sediment Not Reportable 05/22/22 15:05 Urine Bacteria None /hpf (NONE) 05/22/22 15:05 Vitals Last Vital Signs Temp 98.1 F 05/23/22 08:00 Pulse 50 L 05/23/22 08:00 Resp 16 05/23/22 08:00 BP 155/88 05/23/22 11:58 Pulse Ox 97 05/23/22 08:00 O2 Del Method 05/23/22 08:00 Discharge Plan Discharge Patient Disposition: Home Condition: Stable Prescriptions: New losartan 50 mg Tablet 100 mg PO DAILY Qty: 90 0RF hydralazine 25 mg Tablet 25 mg PO TID Qty: 90 4RF Eliquis DVT-PE Treat 30D Start 5 mg (74 tabs) tablets,dose pack 5 mg PO BID Qty: 74 3RF Rx Instructions: 10 mg twice daily for 7 days and then 5 mg twice daily Continued sildenafil (pulm.hypertension) 20 mg tablet 20 mg PO BID Rx Instructions: administer doses at least 4-6 hours apart fluticasone propionate 50 mcg/actuation spray,suspension 2 spray intranasal DAILY PRN (Reason: Nasal Congestion) Rx Instructions: administer into each nostril fenofibrate nanocrystallized 48 mg tablet 48 mg PO DAILY levothyroxine 150 mcg capsule 150 mcg PO DAILY acetazolamide 250 mg tablet 250 mg PO BID acetaminophen [Tylenol] 325 mg tablet 325 mg PO QID PRN (Reason: Pain) omeprazole 40 mg capsule,delayed release(DR/EC) 40 mg PO DAILY ascorbic acid (vitamin C) 1,000 mg tablet 1,000 mg PO DAILY cholecalciferol (vitamin D3) 125 mcg (5,000 unit) capsule 125 mcg PO DAILY omega-3 fatty acids 1,000 mg capsule 1,000 mg PO DAILY multivitamin Tablet 1 tab PO DAILY Complex B-100 Tablet Extended Release 1 tab PO DAILY prednisolone acetate 1 % drops,suspension 1 drp ophthalmic (eye) DAILY Rx Instructions: left eye polymyxin B sulf-trimethoprim 10,000 unit- 1 mg/mL drops 1 drp ophthalmic (eye) BID Rx Instructions: left eye Alphagan 0.2 % Drops 1 drp OPHTHALMIC (EYE) BID Rx Instructions: right eye Cosopt 22.3-6.8 mg/mL Drops 1 drp OPHTHALMIC (EYE) BID Rx Instructions: Right eye Combigan 0.2-0.5 % Drops 1 drp OPHTHALMIC (EYE) DAILY Rx Instructions: Left eye Rocklatan 0.02-0.005 % Drops 1 drp OPHTHALMIC (EYE) BEDTIME Rx Instructions: Right eye tamsulosin 0.4 mg capsule 0.4 mg PO DAILY Discontinued clonidine HCl 0.1 mg tablet 0.1 mg PO Q12H aspirin [Adult Low Dose Aspirin] 81 mg tablet,delayed release (DR/EC) 81 mg PO DAILY Discharge Orders: Discharge Order (Routine); Ordered 05/23/22 Ordered By: Bi Garcia Other Ambulatory Orders: NM card bld [place] [id number] (Routine) Timeframe: 2 Days Facility: [facility] - Location: Radiology Ordered By: Bi Garcia MCT/Event Monitor 21 Days (Routine) Timeframe: 3 Weeks Facility: [facility] - Location: Radiology Ordered By: Bi Garcia Referrals: Jm Marlow, [Primary Care Provider] - 2 weeks Discharge Diet: Cardiac Patient Instructions: Opioid Safety Activity Restrictions/Additional Instructions: For your blood pressure you can take losartan 100 mg daily along a new medication of hydralazine 25 mg 3 times a day, in case your systolic blood pressure stay above 180 or diastolic above 100 you can increase the dose of hydralazine to 50 mg 3 times a day, continue your acetazolamide, I am also giving you a prescription to check your ejection fraction of heart which is a nuclear study For DVT you will take Eliquis 10 mg twice daily for 7 days and then 5 mg twice daily onwards I would recommend you see a grain cleaner for your blood pressure control because your options are limited because of use of sildenafil and acetazolamide Discharge Attestations Time Spent in Discharge Care*: less than 30 min Quality Metrics Clinical Quality Measures [ No reported AMI, CVA or VTE this stay] Coding Level of Care Code Acute Chg FW DC note Diagnoses New onset a-fib I48.91 Edema, peripheral R60.9 Elevated brain natriuretic peptide (BNP) level R79.89
--- NOTE | 2022-05-23 14:26 | PC.NURSE ---
patient and family verbalized understanding of discharge instructions, home medications, and follow up.
--- NOTE | 2022-05-23 16:47 | USCV_ITS ---
Nancy Carrero Age: 66 Gender: F : 1955 Exam Date: 05/23/2022 08:07 Ordering Phys: Bi Garcia MD Technologist: VALERIA Exam Location: [facility] [place] Indication: A FIB BP: 193 / 103 HR: 73 Rhythm: Atrial fibrillation Technical Quality: Suboptimal MEASUREMENTS (Male / Female) Normal Values 2D ECHO LV Diastolic Diameter PLAX 4.8 cm 4.2 - 5.9 / 3.9 - 5.3 cm LV Systolic Diameter PLAX 3.2 cm IVS Diastolic Thickness 1.4 cm 0.6 - 1.0 / 0.6 - 0.9 cm IVS Systolic Thickness 1.9 cm LVPW Diastolic Thickness 1.4 cm 0.6 - 1.0 / 0.6 - 0.9 cm LVPW Systolic Thickness 1.9 cm LVOT Diameter 2.0 cm LV Ejection Fraction 2D Teich 60.5 % LV Ejection Fraction MOD 2C 61.8 % LV Ejection Fraction 2C AL 63.7 % LA Diameter 3.4 cm LA Width 4.0 cm LA Height 3.8 cm RA Width 5.0 cm RA Height 5.0 cm Aorta at Sinotubular Diameter 2.1 cm M-MODE Aortic Annulus Diameter 2.7 cm LA Ao Ratio MM 1.2 MV E Point Septal Separation 0.6 cm DOPPLER AV Peak Velocity 144.0 cm/s LVOT Peak Velocity 72.0 cm/s AV Area Cont Eq vti 1.8 cm squared AV Area Cont Eq pk 1.6 cm squared MV Peak Velocity 89.0 cm/s MV Area PHT 5.0 cm squared Mitral E to A Ratio 1.6 MV E' Velocity 52.0 cm/s Mitral E to MV E' Ratio 8.1 Mitral E to LV E' Lateral Ratio 8.3 Mitral E to LV E' Septal Ratio 8.0 TV Peak E Velocity 35.0 cm/s Right Atrial Pressure 8.0 mmHg FINDINGS Left Ventricle Technically difficult study because of poor apical windows. Echo contrast was used to delineate the LV endocardium and estimate the ejection fraction. Even with the contrast echocardiogram, the study quality is suboptimal. The left ventricle appears to be normal size and ejection fraction. Right Ventricle Possibly of normal size with a slightly diminished ejection fraction Right Atrium Right atrium not well visualized. Left Atrium Possibly of normal size Mitral Valve No gross abnormalities noted Aortic Valve No gross abnormalities noted Tricuspid Valve Could not be visualized well Pulmonic Valve Pulmonic valve not well visualized. Pericardium No pericardial effusion. Aorta Normal aortic annulus size. IVC Inferior vena cava not visualized. CONCLUSIONS Technically difficult study because of poor apical windows. Echo contrast was used to delineate the LV endocardium and estimate the ejection fraction. Even with the contrast echocardiogram, the study quality is suboptimal. The left ventricle appears to be normal size and ejection fraction. No gross wall motion normalities noted. The aortic and mitral valve appeared to be of normal morphology The right ventricle, possibly of normal size with a slightly diminished ejection fraction The right atrium could not be visualized No pericardial effusion Dr Xavier Escalante MD FACC (Electronically Signed) Final Date: 23 May 2022 09:40 S
--- NOTE | 2022-05-23 17:24 | USR_ITS ---
PROCEDURE INFORMATION: Exam: US Duplex Lower Extremity Veins, Bilateral Exam date and time: 05/23/2022 7:49 AM Age: 66 years old Clinical indication: Swelling (edema) of limb; Lower extremity, bilateral TECHNIQUE: Imaging protocol: Real-time Duplex ultrasound of the bilateral extremities with 2-D kurtz scale, color Doppler flow and spectral waveform analysis with image documentation. Complete exam focused on the bilateral lower extremity veins. COMPARISON: No relevant prior studies available. FINDINGS: Right deep veins: Positive for deep venous thrombosis within the right popliteal vein. The common femoral, femoral, and proximal profunda femoral veins are patent without thrombus. Normal Doppler waveforms in the patent veins. Normal compressibility and/or augmentation response in the patent veins. Right superficial veins: Saphenofemoral junction is patent without thrombus. Left deep veins: Unremarkable. The common femoral, femoral, proximal profunda femoral and popliteal veins are patent without thrombus. Normal Doppler waveforms. Normal compressibility and/or augmentation response. Left superficial veins: Saphenofemoral junction is patent without thrombus. Soft tissues: Unremarkable. US/[place] [id number] IMPRESSION: Positive for deep venous thrombosis within the right popliteal vein.
== END 2022-05-23 14:27 | disposition home or self-care (01) ==
LOC: ER 15:35 → MEDSURG 16:38
PROVIDERS: Admitting Provider Internal Medicine; Emergency Provider Emergency Medicine; PCP Family Medicine; Visit Provider Internal Medicine
DX: I48.91 Unspecified atrial fibrillation (principal); R60.9 Edema, unspecified; R79.89 Other specified abnormal findings of blood chemistry; I82.622 Acute embolism and thrombosis of deep veins of left upper extremity; R33.9 Retention of urine, unspecified; I51.7 Cardiomegaly; I25.2 Old myocardial infarction; I50.9 Heart failure, unspecified; Z95.5 Presence of coronary angioplasty implant and graft; Z82.49 Family history of ischemic heart disease and other diseases of the circulatory system; H40.9 Unspecified glaucoma
CPT/HCPCS: 36415; 70450; 71045; 80048; 80053; 81001; 83735; 83880; 84443; 84484; 85025; 85378; 93005; 93970; 94760; 99285; C8929; G0378; Q9956

== ENCOUNTER → 2022-05-25 09:41 | Outpatient (BNVA) | payer MEDICARE, MEDICAID, SELFPAY | PROVIDERS: PCP Family Medicine; Visit Provider Clinical Nurse Specialist Adult Health | DX: E06.3 Autoimmune thyroiditis (principal); I48.91 Unspecified atrial fibrillation; R53.1 Weakness; I10 Essential (primary) hypertension | CPT/HCPCS: 84436; 84443; 84481 ==

== ENCOUNTER → 2022-07-20 15:12 | Outpatient (BNVA) | payer MEDICARE, MEDICAID, SELFPAY | PROVIDERS: PCP Family Medicine; Visit Provider Internal Medicine | DX: I48.91 Unspecified atrial fibrillation (principal); I10 Essential (primary) hypertension; R06.02 Shortness of breath | CPT/HCPCS: 80048; 83880; 99204 ==

== ENCOUNTER → 2022-07-28 10:07 | Outpatient (BNVA) | payer MEDICARE, MEDICAID, SELFPAY | PROVIDERS: PCP Family Medicine; Referring Provider Clinical Nurse Specialist Adult Health; Visit Provider Internal Medicine | DX: E06.3 Autoimmune thyroiditis (principal); E05.00 Thyrotoxicosis with diffuse goiter without thyrotoxic crisis or storm; E03.9 Hypothyroidism, unspecified | CPT/HCPCS: 99204 ==

== ENCOUNTER → 2022-08-06 10:38 | Outpatient (BNVA) | payer MEDICARE, MEDICAID, SELFPAY | PROVIDERS: PCP Family Medicine; Referring Provider Clinical Nurse Specialist Adult Health; Visit Provider Internal Medicine | DX: E06.3 Autoimmune thyroiditis (principal); E03.9 Hypothyroidism, unspecified; E05.00 Thyrotoxicosis with diffuse goiter without thyrotoxic crisis or storm; I48.91 Unspecified atrial fibrillation | CPT/HCPCS: 36415; 80048; 83516; 84439; 84443; 84480 ==

== ENCOUNTER 2022-08-28 06:59 | Outpatient (CLI) | payer MEDICARE, MEDICAID, SELFPAY ==
--- NOTE | 2022-08-28 07:11 | ECG_ITS ---
[facility] Test Date: 2022-08-28 Pat Name: Nancy Carrero Department: Room: Gender: Female [employer] Security Consultant: : 1955 Requested By: Lars Mehta Order Number: [id number] Isaac MD: Xavier Escalante M.D. Interpretive Statements NAME OF STUDY: LEXISCAN SESTAMIBI STRESS TEST INDICATION: Shortness of Breath, PROCEDURE: At the baseline, the EKG revealed atrial fibrillation with a controlled ventricular response rate of 63 bpm. Poor R wave progression. Some nonspecific T wave changes. The baseline heart was 63 bpm with a blood pressue of 152/103 mm of Hg Lexiscan was infused over a period of 20 seconds. A total of 0.4 milligrams of Lexiscan was infused. The stress phase was continued for a total of 5 minutes. Heart rate at the end of the stress phase was 71 bpm with a blood pressure 89/64 mm of Hg. The EKG at the peak infusion revealed no significant changes. Sestamibi was injected 20 seconds after the Lexiscan infusion. Heart rate at the end of the recovery phase was 68 bpm with a blood pressure of 109/68 mm of Hg. CONCLUSION: 1. No significant EKG changes with the LexiScan infusion 2. No LexiScan induced chest pain or cardiac arrhythmia 3. Normal blood pressure and heart rate response 4. Sestamibi/sestamibi perfusion scan pending; see separate report. Electronically Signed On 09-06-2022 17:09:38 SAP PORTAL CONSULTANT by Xavier Escalante M.D. [id number]
--- NOTE | 2022-08-28 07:11 | NMCV_ITS ---
NM latoya perf SPECT r/s* [id number] Magan Nancy Age: 66 Gender: F : 1955 Exam Date: 08/28/2022 08:31 Ordering Phys: Lars Mehta M.D ([email or web address]) Technologist: JOSEFINA Stanton Exam Location: [facility] [address] Indications: SHORTNESS OF BREATH STRESS TEST Please see separate stress test report in [facility] for full findings IMAGE PROTOCOL Rest/Stress 1 Lexiscan Day Radiopharmaceutical Dose (mCi) Administration Site Administered by Rest: Tc-99m 9.6 IV JOSEFINA Vicente Sestamibi Stress:Tc-99m 29.2 IV JOSEFINA Vicente Sestamibi Rest: 28-Aug-2022 60 Discovery 630 Stress: 28-Aug-2022 30 Discovery 630 0.4mg Lexiscan. Supine position only as patient was unable to lay prone. SPECT RESULTS Technical Quality: Good Raw Data Analysis: Normal Image Corrections: No attenuation or motion correction applied Summed Stress Score: 0 Summed Rest Score: 1 Summed Difference Score: 0 PERFUSION FINDINGS SPECT images demonstrate homogeneous tracer distribution throughout the myocardium. FUNCTIONAL RESULTS (calculated via Gated SPECT) Stress Image LV EF (%): 76 Stress EDV (mL):87 TID: 1.04 Stress ESV (mL):21 FUNCTIONAL FINDINGS: There is normal left ventricular systolic function. IMPRESSIONS 1. Normal myocardial perfusion imaging with no evidence of ischemia. 2. LV systolic function is normal. Lars Mehta MD (Electronically Signed) Final Date: 05 September 2022 10:59 S
[2022-08-28 07:27] VITALS: BMI 30.3
[2022-08-28] MEDS: regadenoson 0.4 Mg/5 ml Syringe IVP (09:52)
[2022-08-28 10:30] VITALS: BP 117/67; PULSE 68
== END 2022-08-28 07:00 | disposition home or self-care (01) ==
LOC: CDL 07:04
PROVIDERS: PCP Family Medicine; Visit Provider Internal Medicine
DX: R06.02 Shortness of breath (principal)
CPT/HCPCS: 36415; 78452; 93017; 96374; A9500; J2785

== ENCOUNTER → 2022-09-29 12:34 | Outpatient (BNVA) | payer MEDICARE, MEDICAID, SELFPAY | PROVIDERS: PCP Family Medicine; Visit Provider Internal Medicine | DX: I48.91 Unspecified atrial fibrillation (principal); I10 Essential (primary) hypertension; E03.9 Hypothyroidism, unspecified | CPT/HCPCS: 36415; 80048; 83880; 84439; 84443; 99214 ==

== ENCOUNTER → 2023-01-20 08:27 | Outpatient (BNVA) | payer MEDICARE, MEDICAID, SELFPAY | PROVIDERS: PCP Family Medicine; Visit Provider Internal Medicine | DX: E06.3 Autoimmune thyroiditis (principal); E03.9 Hypothyroidism, unspecified; E05.00 Thyrotoxicosis with diffuse goiter without thyrotoxic crisis or storm; Z79.890 Hormone replacement therapy | CPT/HCPCS: 99214 ==

== ENCOUNTER → 2023-02-11 11:09 | Outpatient (BNVA) | payer MEDICARE, MEDICAID, SELFPAY | PROVIDERS: PCP Family Medicine; Visit Provider Family Medicine | DX: E03.9 Hypothyroidism, unspecified (principal); I10 Essential (primary) hypertension; I73.00 Raynaud's syndrome without gangrene; M35.00 Sjogren syndrome, unspecified; R41.3 Other amnesia; R60.9 Edema, unspecified | CPT/HCPCS: 80053; 80061; 82607; 84443; 85025; 86140 ==

== ENCOUNTER → 2023-03-18 07:47 | Outpatient (BNVA) | payer MEDICARE, MEDICAID, SELFPAY | PROVIDERS: PCP Family Medicine; Visit Provider Urology | DX: R33.9 Retention of urine, unspecified (principal); R39.16 Straining to void; R32 Unspecified urinary incontinence | CPT/HCPCS: 51798; 81003; 99213 ==

== ENCOUNTER → 2023-03-31 14:42 | Outpatient (BNVA) | payer MEDICARE, MEDICAID, SELFPAY | PROVIDERS: PCP Family Medicine; Visit Provider Internal Medicine | DX: I10 Essential (primary) hypertension (principal); I48.91 Unspecified atrial fibrillation; Z79.01 Long term (current) use of anticoagulants | CPT/HCPCS: 99214 ==

== ENCOUNTER → 2023-06-01 10:26 | Outpatient (BNVA) | payer MEDICARE, MEDICAID, SELFPAY | PROVIDERS: PCP Family Medicine; Visit Provider Family Medicine | DX: E03.9 Hypothyroidism, unspecified (principal) | CPT/HCPCS: 84443 ==

== ENCOUNTER → 2023-07-02 09:40 | Outpatient (BNVA) | payer MEDICARE, MEDICAID, SELFPAY | PROVIDERS: PCP Family Medicine; Visit Provider Podiatrist Foot & Ankle Surgery | DX: I73.9 Peripheral vascular disease, unspecified (principal); B35.1 Tinea unguium; H54.7 Unspecified visual loss | CPT/HCPCS: 11721; 99203 ==

== ENCOUNTER → 2023-09-29 14:56 | Outpatient (BNVA) | payer MEDICARE, MEDICAID, SELFPAY | PROVIDERS: PCP Family Medicine; Visit Provider Internal Medicine | DX: I10 Essential (primary) hypertension (principal); I48.91 Unspecified atrial fibrillation; Z79.01 Long term (current) use of anticoagulants | CPT/HCPCS: 99214 ==

== ENCOUNTER → 2023-10-19 08:21 | Outpatient (BNVA) | payer MEDICARE, MEDICAID, SELFPAY | PROVIDERS: PCP Family Medicine; Visit Provider Family Medicine | DX: I48.91 Unspecified atrial fibrillation (principal); I73.00 Raynaud's syndrome without gangrene; E03.9 Hypothyroidism, unspecified; R11.0 Nausea; Z13.6 Encounter for screening for cardiovascular disorders | CPT/HCPCS: 80053; 80061; 84443; 85025 ==

== ENCOUNTER 2023-10-25 11:54 | Inpatient (IN) | payer MEDICARE, MEDICAID, SELFPAY ==
[2023-10-25] VITALS (8 sets, daily range): BP systolic 112–195; BP diastolic 52–101; PULSE 71–85; RESP 14–16; TEMP 36.5; O2SAT 94–99; BMI 25.9
--- NOTE | 2023-10-25 12:55 | CTR_ITS ---
PROCEDURE INFORMATION: Exam: CT Abdomen And Pelvis With Contrast Exam date and time: 10/25/2023 2:04 PM Age: 68 years old Clinical indication: Constipation; Additional info: Constipation/gi bleed/melena stools TECHNIQUE: Imaging protocol: Computed tomography of the abdomen and pelvis with contrast. Radiation optimization: All CT scans at this facility use at least one of these dose optimization techniques: automated exposure control; mA and/or kV adjustment per patient size (includes targeted exams where dose is matched to clinical indication); or iterative reconstruction. Contrast material: OMNI 350; Contrast volume: 100 ml; Contrast route: INTRAVENOUS (IV); COMPARISON: CR XR chest 1V portable [id number] 05/22/2022 12:42 PM RADIATION DOSE METRICS: Total DLP (mGy-cm): 596 FINDINGS: Lungs: There is a ground-glass nodule in the right middle lobe measuring 7 mm on axial series 5, image 2. There is subsegmental atelectasis in the lung bases. Liver: The liver is normal. Gallbladder and bile ducts: The gallbladder is distended. The wall is thin and there is no pericholecystic edema. There are 2 peripherally calcified gallstones measuring 18 mm each. There is no intrahepatic or extrahepatic bile duct dilation. Pancreas: The pancreas is unremarkable. Spleen: The spleen is unremarkable. Adrenal glands: The adrenal glands are unremarkable. Kidneys and ureters: There is contrast in the renal collecting systems which would obscure small stones if present. Renal parenchymal enhancement pattern is normal bilaterally. There is no hydronephrosis or ureteral dilation. Stomach and bowel: The stomach is decompressed, preventing meaningful evaluation of wall thickness. The small bowel is nondilated. The rectum is stool distended measuring 8 cm diameter. There is mild wall thickening and mucosal hyperemia in the upper rectum. There is mild stool distention of the ascending colon. The colon is decompressed from the hepatic flexure to the distal sigmoid. There is no sign of inflammation above the rectum. Appendix: The appendix is not visible. Intraperitoneal space: There is no free air or significant intraperitoneal free fluid. Vasculature: There is moderate aortic atherosclerotic disease. The portal, splenic and superior mesenteric veins are patent. No portal venous gas. Lymph nodes: There is no lymphadenopathy in the retroperitoneum, mesentery, pelvis or inguinal regions. Urinary bladder: The urinary bladder is distended and thin walled. Reproductive: The uterus is absent. There is no adnexal mass or large cyst. Extraperitoneal space: There is mild edema in the perirectal space and trace fluid in the presacral space. Bones/joints: There is mild degenerative disease in the lumbar spine. There is hyperlordosis of the lower lumbar spine. There is mild degenerative disease of both hips. The bony pelvis is intact. Soft tissues: The abdominal wall is intact. CT/CT abdomen pelvis w con* [id number] IMPRESSION: 1. Dilated stool-filled rectum suggests fecal impaction. 2. Mild rectal mucosal hyperemia and perirectal edema with trace presacral fluid consistent with rectal inflammation. Probable stercoral proctitis. No sign of necrosis. 3. Cholelithiasis and gallbladder distension without other evidence of acute cholecystitis. If there is clinical suspicion of acute cholecystitis then ultrasound should be considered. 4. 7 mm ground-glass nodule in the right lung. Recommend CT Chest at 6-12 months to confirm persistence of the nodule, then CT Chest at 3 years and 5 years. (Reference: Katalina) 5. Incidental findings above. REFERENCES: Katalina Thomas et al. Guidelines for Management of Incidental Pulmonary Nodules Detected on CT Images: From the Fleischner Society 2017. Radiology. 2017;284(1):228-243.
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
[2023-10-25 13:07] LABS: INR 1.23 (0.8-1.2)
[2023-10-25 13:12] LABS: Basophils % 0.2 %; Eosinophils # 0.1 10^3/uL (0.0-0.8); Eosinophils % 0.4 %; Hematocrit 43.3 % (36-47); Lymphocytes # 1.1 10^3/uL (0.8-4.8); Mean Corpuscular HGB Conc 32.8 g/dL (30-55); Mean Corpuscular Hemoglobin 29.7 pg (27-33); Mean Corpuscular Volume 90.6 fl (85-98); Monocytes # 0.5 10^3/uL (0.2-0.9); Monocytes % 4.1 %; Neutrophils # 10.36 10^3/uL (1.8-7.7); Neutrophils % 85.9 %; Nucleated Red Blood Cells % 0 %; Platelet Count 379 10^3/cmm (157-399); Red Blood Count 4.78 10^6/uL (3.85-5.65); Red Cell Distribution Width 13.4 % (12.1-15.1); White Blood Count 12.07 10^3/uL (3.29-11.43)
[2023-10-25 13:15] LABS: Alanine Aminotransferase 23 U/L (0-33); Albumin Level 4.3 g/dL (3.5-5.2); Alkaline Phosphatase 118 U/L (35-105); Anion Gap 15.8 (5-19); Aspartate Amino Transferase 20 U/L (0-32); Blood Urea Nitrogen 20 mg/dL (8-23); Calcium 10.1 mg/dL (8.5-10.5); Carbon Dioxide 28 mmol/L (22-29); Chloride 96 mmol/L (98-107); Globulin 4.1 g/dL (1.3-4.6); Glomerular Filtration Rate 44.8 mL/min (90-130); Glucose 163 mg/dL (65-115); Lipase 32 U/L (13-60); Osmolality Calculated 288 mOsm/kg (285-295); Potassium 3.8 mmol/L (3.5-5.1); Sodium 136 mmol/L (136-145); Total Bilirubin 0.4 mg/dL (0.15-1.2); Total Protein 8.4 g/dL (6.6-8.7)
[2023-10-25] MEDS: iohexol 350 mg/mL 500 mL Btl (per mL) IV (14:20)
[2023-10-25 14:48] LABS: Add Urine Microscopic? NO
[2023-10-25 14:51] LABS: Bilirubin Urine Neg (Negative); Blood Urine Neg (Negative); Glucose Urine UA Norm (Normal); Ketones Urine Negative (Negative); Leukocyte Esterase Urine Negative (Negative); Nitrate Urine Negative (Negative); Protein Urine Neg (Negative); Sulfosalicylic Acid Urine Negative (Negative); Urine Appearance Clear (CLEAR); Urine Color Light yellow (Yellow); Urobilinogen Urine Norm (Negative); pH Urine 8 (5-7)
[2023-10-25 14:53] LABS: Charge for UA Resulting for Rev
--- NOTE | 2023-10-25 15:29 | PC.PHAR ---
pts sister verified pts medications-states the pt takes clonidine 0.1mg hs ext shows last filled 08/24/23 30d/s 0.1mg qid-pts sister states the pt takes hydralazine 25mg tid rx written on 09/29/23 ext shows last filled 09/15/23 90d/s 25mg bid-pts sister states the nitro ointment is on hold-pts sister also states the pt hasnt restarted sildenafil bid for raynaud phenomenon states not had for 6 weeks-notes are made in the pharmacy comments
[2023-10-25] MEDS: Fleet Enema 133 mL Enema PR (16:06)
--- NOTE | 2023-10-25 16:20 | CTR_ITS ---
PROCEDURE INFORMATION: Exam: CT Head Without Contrast Exam date and time: 10/25/2023 6:10 PM Age: 68 years old Clinical indication: Dizziness; Prior surgery; Surgery date: <1 month; Surgery type: Eyes; Additional info: Eye surgery, got into lining of brain? Now light headed and, dizzy TECHNIQUE: Imaging protocol: Computed tomography of the head without contrast. Radiation optimization: All CT scans at this facility use at least one of these dose optimization techniques: automated exposure control; mA and/or kV adjustment per patient size (includes targeted exams where dose is matched to clinical indication); or iterative reconstruction. COMPARISON: CT head wo con* [id number] 05/22/2022 2:45 PM RADIATION DOSE METRICS: Total DLP (mGy-cm): 1204 FINDINGS: Brain: Right frontal 4.6 cm cystic masslike lesion with a hyperdense periphery causing leftward midline shift, new compared to prior exam, may reflect a malignant process, however, other etiologies such as infection are also considerations, MRI advised for further evaluation. Associated edema is seen with the mass. Cerebral ventricles: Mild diffuse ventricular dilation. Paranasal sinuses: Left maxillary and right sphenoid sinus opacification. Mastoid air cells: Visualized mastoid air cells are well aerated. Orbital cavities: Right orbit medial wall defect, compared to prior exam. Bones/joints: Left inferior medial orbital bony defect, please correlate with surgical history. Left occipital craniectomy changes. Soft tissues: Unremarkable. CT/CT head wo con* [id number] IMPRESSION: 1. Right frontal 4.6 cm cystic masslike lesion with a hyperdense periphery causing leftward midline shift, new compared to prior exam, may reflect a malignant process, however, other etiologies such as infection are also considerations, MRI advised for further evaluation. Associated edema is seen with the mass. 2. Mild diffuse ventricular dilation. 3. Mild diffuse ventricular dilation. 4. Left maxillary and right sphenoid sinus opacification. 5. Right orbit medial wall defect, compared to prior exam. 6. Left inferior medial orbital bony defect, please correlate with surgical history. 7. Left occipital craniectomy changes.
--- NOTE | 2023-10-25 16:20 | CTR_ITS ---
PROCEDURE INFORMATION: Exam: CT Orbits Without Contrast Exam date and time: 10/25/2023 6:10 PM Age: 68 years old Clinical indication: Other: Dizzy; Prior surgery; Surgery date: <1 month; Surgery type: Eyes; Additional info: Eye surgery, now lightheaded and dizzy TECHNIQUE: Imaging protocol: Computed tomography of the orbits without contrast. Radiation optimization: All CT scans at this facility use at least one of these dose optimization techniques: automated exposure control; mA and/or kV adjustment per patient size (includes targeted exams where dose is matched to clinical indication); or iterative reconstruction. COMPARISON: CT head wo con* [id number] 10/25/2023 6:10 PM, head CT 05/22/2022 RADIATION DOSE METRICS: Total DLP (mGy-cm): 347 FINDINGS: Brain: Please refer to same-day CT brain for findings in this area. Paranasal sinuses: Opacification of the left maxillary and right sphenoid sinuses. Right maxillary sinus and bilateral ethmoid sinus mucosal thickening. Orbital cavities: Left globe apparent surgical hardware. Left orbit inferior medial wall bony defect, please correlate with history, new compared to exam from 2021. Right orbit inferior medial wall defect, please correlate with history, new compared to prior exam from 2021. Bones/joints: See above. Soft tissues: No significant facial soft tissue swelling. CT/CT orbit BI wo con* [id number] IMPRESSION: 1. Please refer to same-day CT brain for findings in this area. 2. Left globe apparent surgical hardware. 3. Opacification of the left maxillary and right sphenoid sinuses. 4. Right maxillary sinus and bilateral ethmoid sinus mucosal thickening. 5. Left orbit inferior medial wall bony defect, please correlate with history, new compared to exam from 2021. 6. Right orbit inferior medial wall defect, please correlate with history, new compared to prior exam from 2021.
[2023-10-25] MEDS: sodium chloride 0.9% 1,000 ML 999 ML IV (16:45)
[2023-10-25] MEDS: magnesium citrate Btl 296 mL 150 ML PO (16:45)
[2023-10-25 16:50] LABS: C Reactive Protein 3.4 mg/L (0.0-4.9)
[2023-10-25 16:57] LABS: Procalcitonin 0.07 ng/mL (0-0.5)
--- NOTE | 2023-10-25 17:11 | P.HP_ITS ---
Providers/Chief Complaint 2 Admitting Physician: Hugo Renee MD Primary Care Provider: Jm Marlow DO Chief Complaint: rectal bleeding History of Present Illness Nancy Carrero is a 68 year old female with a past medical history of atrial fibrillation, on Eliquis, history of brain tumor, history of renal disease, history of Silvia's disease, history of Sjogren's disease, history of urinary continence, she tells me that about 6 weeks ago she had an eye surgery, and she had complications of the eye surgery she tells me that they got into the lining of her eye, since then she has followed up with plastic surgery multiple times, and her passenger screener and they tell her everything is okay, she says since her surgery she has not been able to walk normally she walks with a walker, now she is not able to walk due to dizziness and lightheadedness feeling nauseous feeling unwell she has had intermittent fevers. The other issues that she has been severely constipated, her sister at bedside tried a bowel regimen, and she started having stools with blood, maroon-colored stools, and bright red blood per wiping. The reason that she comes to the emergency room, is the bright red blood per rectum, and the maroon-colored stools, no history of black tarry stools, she tells me that she had a colonoscopy but it had to be stopped due to poor prep. In the emergency room she is hemodynamically stable, she has received bowel regimen, general surgery has been called by ER provider, as a CT scan shows: 1. Dilated stool-filled rectum suggests fecal impaction. 2. Mild rectal mucosal hyperemia and perirectal edema with trace presacral fluid consistent with rectal inflammation. Probable stercoral proctitis. No sign of necrosis. -She has a history of gallstone, she does feel nauseous, but no significant right upper quadrant tenderness, Review of Systems 2 Const: Reports: fever(s), fatigue and malaise Card: Denies: chest pain Resp: Denies: dyspnea GI: Reports: abdominal pain and nausea Medications/Allergies Home Medications Medication Instructions Recorded Confirmed Last Taken Type fluticasone propionate 50 2 spray intranasal DAILY PRN 06/17/21 10/25/23 Unknown History mcg/actuation nasal Allergy Symptoms spray,suspension acetaminophen 325 mg tablet 325 mg PO QID PRN Pain 07/03/21 10/25/23 Unknown History (Tylenol) ascorbic acid (vitamin C) 1,000 mg 1,000 mg PO QAM 07/03/21 10/25/23 10/25/23 History tablet cholecalciferol (vitamin D3) 125 125 mcg PO QAM 07/03/21 10/25/23 10/25/23 History mcg (5,000 unit) capsule multivitamin 1 tab PO DAILY@12 07/03/21 10/25/23 10/24/23 History omeprazole 40 mg capsule,delayed 40 mg PO BEDTIME 07/03/21 10/25/23 10/24/23 History release brimonidine 0.2 %-timolol 0.5 % 1 drp ophthalmic (eye) BID 05/22/22 10/25/23 10/25/23 History eye drops (Combigan) dorzolamide 22.3 mg-timolol 6.8 1 drp ophthalmic (eye) BID 05/22/22 10/25/23 05/22/22 History mg/mL eye drops (Cosopt) netarsudil 0.02 %-latanoprost 1 drp ophthalmic (eye) BEDTIME 05/22/22 10/25/23 05/21/22 History 0.005 % eye drops (Rocklatan) polymyxin B sulfate 10,000 1 drp ophthalmic (eye) DAILY 05/22/22 10/25/23 05/22/22 History unit-trimethoprim 1 mg/mL eye drops prednisolone acetate 1 % eye 1 drp ophthalmic (eye) DAILY 05/22/22 10/25/23 05/22/22 History drops,suspension Rolling walker #1 ea 05/25/22 10/25/23 Unknown Rx Rolling Walker with seat and breaks #1 ea 05/29/22 10/25/23 Unknown Rx apixaban 5 mg tablet (Eliquis) 5 mg PO BID #180 tabs 11/24/22 10/25/23 10/25/23 Rx furosemide 40 mg tablet (Lasix) 40 mg PO BID #180 tabs 04/05/23 10/25/23 10/25/23 Rx hydralazine 25 mg tablet 25 mg PO TID #270 tabs 09/29/23 10/25/23 10/25/23 Rx sildenafil (pulm.hypertension) 20 See Rx Instructions .Route 10/19/23 10/25/23 6 Weeks Ago Rx mg tablet .COMPLEX #60 tabs ~09/13/23 not restarted yet aspirin 81 mg tablet,delayed 81 mg PO QAM 10/25/23 10/25/23 10/25/23 History release clonidine HCl 0.1 mg tablet 0.1 mg PO DAILY@21 10/25/23 10/25/23 10/24/23 History fenofibrate nanocrystallized 48 mg 48 mg PO BEDTIME 10/25/23 10/25/23 10/24/23 History tablet levothyroxine 137 mcg tablet 137 mcg PO QAM 10/25/23 10/25/23 10/25/23 History losartan 100 mg tablet 100 mg PO BEDTIME 10/25/23 10/25/23 10/24/23 History magnesium 200 mg tablet 200 mg PO BID 10/25/23 10/25/23 10/25/23 History nitroglycerin 2 % transdermal 0.5 inch transdermal BID PRN 10/25/23 10/25/23 Unknown History ointment severe raynaud symptoms ondansetron HCl 4 mg tablet 4 mg PO TID@07,15,21 10/25/23 10/25/23 10/25/23 07:00 History perfluorohexyloctane (PF) 100 % 1 drp ophthalmic (eye) QID PRN Dry 10/25/23 10/25/23 Unknown History eye drops (Miebo) Eyes tamsulosin 0.4 mg capsule 0.4 mg PO BEDTIME 10/25/23 10/25/23 10/24/23 History Allergies Allergy/AdvReac Type Severity Reaction Status Date / Time No Known Allergies Allergy Verified 10/25/23 15:09 PFSH Acute 2 PFSH: Medical History Cardiomegaly Elevated brain natriuretic peptide (BNP) level Edema, peripheral New onset a-fib 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 Better with positional changes UUI: better with volume management Surgical History Hx of hysterectomy History of colon resection Hx of eye surgery MULTIPLE EYE SURGERIES Hx of skin graft Family History Father , AT AGE 37 HEART ATTACK CAD (coronary artery disease) MOTHER AT AGE 87 FLU Social History Smoking and tobacco/nicotine status: never used tobacco/nicotine Alcohol intake: former Substance/Drug Use: never Adopted: No Caregiver/support person: Yes Lives independently: Yes Household members: none Housing: House Marital status: Single Highest education level completed: 10th Grade service: No Current occupational status: disabled Pets and animals: No Current gender identity: Female Vitals/I&O/Wt Last Vital Signs Temp 97.7 F 10/25/23 12:07 Pulse 85 10/25/23 12:07 Resp 16 10/25/23 12:07 BP 154/81 10/25/23 13:09 Pulse Ox 99 10/25/23 12:07 O2 Del Method Room Air 10/25/23 12:07 Weight last 48 hrs Weight 73.028 kg Physical Exam 2 Const: COMMON NORMALS: no acute distress and patient oriented x3 HENMT: COMMON NORMALS: normocephalic HEAD & SCALP: normocephalic Neck/C-Spine: COMMON NORMALS: no JVD Lymph: LYMPHATIC: no lymphadenopathy noted Resp: COMMON NORMALS: normal respiratory effort, No retractions, No use of accessory muscles and clear to auscultation bilaterally AUSCULTATION: clear to auscultation bilaterally Cardio: COMMON NORMALS: regular rate, regular rhythm, S1 normal heart sound present and S2 normal heart sound present RATE: regular rate RHYTHM: r egular rhythm HEART SOUNDS: S1 normal heart sound present and S2 normal heart sound present GI: OTHER: Abdomen soft, distended, good bowel sounds, no guarding, no rebound, rigidity, no significant right upper quadrant tenderness Extremity: COMMON NORMALS: no calf tenderness and no pedal edema Neuro: COMMON NORMALS: patient oriented x3, CN's II-XII intact bilaterally, moves all extremities and no focal motor deficits Psych: COMMON NORMALS: mental status grossly normal Data 10/25/23 12:39 10/25/23 12:39 A&P Assessment and plan (1) Atrial fibrillation: (2) Chronic anticoagulation: (3) Hypothyroidism: (4) Fecal impaction: (5) Lower GI bleed: (6) Bloody stools: Plan Nausea, vomiting, lightheadedness, inability to walk -Since her eye surgery, she tells me that they got into the lining of her eye, she is following up with her surgeon and her plastic surgeon and her passenger screener multiple times she never had imaging of the brain ? Plan to ? CRP, Pro-Clay, sed rate, blood cultures, CT head, CT orbit -If CT head and CT orbit looks okay, will accept as admission Lower GI bleed, bloody stools ? Hemodynamically stable, hemoglobin stable, monitor hemoglobin closely, ? Monitor for bloody or black stools Fecal impaction 1. Dilated stool-filled rectum suggests fecal impaction. 2. Mild rectal mucosal hyperemia and perirectal edema with trace presacral fluid consistent with rectal inflammation. Probable stercoral proctitis. No sign of necrosis. ? General surgery recommended Fleet enema, with mag citrate ? Start a bowel prep such as MiraLAX, donna Gallbladder ultrasound, CT scan shows gallstones Attestations 2 Medical Necessity Statement*: Patient requires hospitalization for fecal impaction, lower GI bleed, gallbladder ultrasound, requiring hemoglobin monitoring, ultrasound, fecal impaction requiring disimpaction Diagnoses Atrial fibrillation I48.91 Chronic anticoagulation Z79.01 Hypothyroidism E03.9 Fecal impaction K56.41 Lower GI bleed K92.2 Bloody stools K92.1
[2023-10-25 17:20] LABS: Erythrocyte Sedimentation Rate 27 mm/hr (0-15)
--- NOTE | 2023-10-25 17:20 | PC.NURSE ---
Pt had large BM after enema
--- NOTE | 2023-10-25 17:29 | PC.NURSE ---
Pt took her home meds, omeprazole, fenofibrage, tylenol, losartan, hydralazine, and tamsulosin.
[2023-10-25 17:39] LABS: Lactic Sepsis W/Reflex 2.8 mmol/L (0.5-2.2)
[2023-10-25 18:08] LABS: NT Pro B Type Natriuretic Pept 1146 pg/mL (0-125)
[2023-10-25 19:04] LABS: Reflex Lactate Order REFLEX LACTIC ORDERD
[2023-10-25] MEDS: piperacillin-tazobactam 3.375 GM in sodium chloride 0.9% (plus) 50 ML IV (20:17)
[2023-10-25] MEDS: vancomycin 1,750 MG/350 ML PIGGYBACK 175 MG IV (22:19)
[2023-10-26] VITALS (12 sets, daily range): BP systolic 96–129; BP diastolic 55–87; PULSE 48–73; RESP 16–18; O2SAT 92–99
[2023-10-26] MEDS: piperacillin-tazobactam 3.375 GM in sodium chloride 0.9% (plus) 50 ML IV ×2 (00:30→08:22)
--- NOTE | 2023-10-26 01:00 | PC.NURSE ---
Assumed care of patient from Ernesto Redmond RN @ 0100. Pt up to bedside commode with assistance of sister and corporate law assistant.
[2023-10-26] MEDS: acetaminophen 500 mg Tablet 1000 MG PO (02:15)
[2023-10-26] MEDS: ondansetron 2 mg/ML SDV 2 mL 4 MG IVP ×2 (03:22→10:33)
[2023-10-26] MEDS: pantoprazole DR 40 mg Tablet PO (08:21)
[2023-10-26 10:07] LABS: Basophils % 0.3 %; Eosinophils % 0.4 %; Hematocrit 37.3 % (36-47); Lymphocytes # 1.7 10^3/uL (0.8-4.8); Lymphocytes % 15.8 %; Mean Corpuscular HGB Conc 32.7 g/dL (30-55); Mean Corpuscular Volume 91.6 fl (85-98); Mean Platelet Volume 9.8 fL (7.4-10.4); Monocytes # 0.7 10^3/uL (0.2-0.9); Monocytes % 6.7 %; Neutrophils # 8.28 10^3/uL (1.8-7.7); Neutrophils % 76.4 %; Nucleated Red Blood Cells % 0 %; Platelet Count 278 10^3/cmm (157-399); Red Blood Count 4.07 10^6/uL (3.85-5.65); Red Cell Distribution Width 13.9 % (12.1-15.1); White Blood Count 10.83 10^3/uL (3.29-11.43)
--- NOTE | 2023-10-26 10:22 | PM.PN ---
Subjective Subjective: Patient was seen this morning, her second sister is at bedside, she does report more neck stiffness this morning, no headache, she is legally blind, does complain of right eye pain, no lightheadedness, no dizziness, but she has remained in bed, she did have several large bowel movements throughout the night, and she feels significantly better, she is waiting on transfer to [facility] in [place], for concerns for intracranial abscess, concerned that it is associated with her ocular decompression secondary to severe exophthalmos roughly 6 weeks ago, I discussed with patient and her sister at bedside that I would be highly concerned that this is a intracranial abscess, it is its on the same side as her surgery, and really her difficulty walking symptomatology only has happened since her surgery before her surgery apparently she was functional, she could walk, but the other thought is this could be a possible malignancy will see with the experts and neurosurgery thinks at [facility], she is on Eliquis which I will continue to hold just in case she needs urgent surgery at [facility], I went to resume her levothyroxine, hold all her blood pressure medications, SCDs for DVT prophylaxis, she did have breakfast this morning which is okay, the ambulance should be here in any time to pick her up to be transferred to [facility], I would keep her n.p.o. from now just in case she needs urgent surgery, started on IV fluids, discussed extensively with patient and sister at bedside, all questions answered, Vitals/I&O/Wt Last Vital Signs Temp 97.7 F 10/25/23 12:07 Pulse 48 L 10/26/23 07:00 Resp 18 10/26/23 02:33 BP 129/87 10/26/23 08:00 Pulse Ox 99 10/26/23 08:00 O2 Del Method Room Air 10/26/23 08:00 10/25/23 10/26/23 10/26/23 22:59 06:59 14:59 Intake Total 1050 / 1050 400 / 1450 Balance 1050 / 1050 400 / 1450 Weight last 48 hrs Weight 73.028 kg Physical Exam Const: COMMON NORMALS: no acute distress ORIENTATION/CONSCIOUSNESS: Yes awake, Yes oriented to person and Yes oriented to place; not oriented to time Resp: COMMON NORMALS: normal respiratory effort, No retractions, No use of accessory muscles and clear to auscultation bilaterally AUSCULTATION: clear to auscultation bilaterally Cardio: COMMON NORMALS: regular rate RATE: regular rate GI: COMMON NORMALS: Normal to inspection, nondistended, normoactive bowel sounds present and non-tender Extremity: COMMON NORMALS: no pedal edema Neuro: SENSORIUM/ORIENTATION: Yes oriented to person, Yes oriented to place and No oriented to time Data 10/26/23 09:56 10/25/23 12:39 A&P Assessment and plan (1) Atrial fibrillation: (2) Chronic anticoagulation: (3) Hypothyroidism: (4) Fecal impaction: (5) Lower GI bleed: (6) Bloody stools: (7) Brain abscess: Plan Brain abscess versus brain tumor ?ocular decompression secondary to severe exophthalmos roughly 6 weeks ago ? Plan ? Seizure precautions, neurochecks, aspiration precautions ? Continue vancomycin, Zosyn, ?will hold off on Decadron for now ? Blood cultures drawn, ? For now keep n.p.o., ? Awaiting transfer to [facility] Nausea, vomiting, lightheadedness, inability to walk -Since her eye surgery, she tells me that they got into the lining of her eye, she is following up with her surgeon and her plastic surgeon and her sorting cows worker multiple times she never had imaging of the brain ? Plan to ? As above Lower GI bleed, bloody stools, resolving ? Hemodynamically stable, hemoglobin stable, monitor hemoglobin closely, ? Monitor for bloody or black stools Fecal impaction 1. Dilated stool-filled rectum suggests fecal impaction. 2. Mild rectal mucosal hyperemia and perirectal edema with trace presacral fluid consistent with rectal inflammation. Probable stercoral proctitis. No sign of necrosis. ? General surgery recommended Fleet enema, with mag citrate ? Has had several large bowel movements, on examination today abdomen is nondistended, good bowel sounds, no guarding, no rebound, no rigidity, Gallbladder ultrasound, CT scan shows gallstones Attestations Medical Necessity Statement*: Patient requires hospitalization and transfer to tertiary level center, for brain abscess after eye surgery Diagnoses Atrial fibrillation I48.91 Chronic anticoagulation Z79.01 Hypothyroidism E03.9 Fecal impaction K56.41 Lower GI bleed K92.2 Bloody stools K92.1 Brain abscess G06.0
[2023-10-26 10:39] LABS: Anion Gap 14.7 (5-19); Blood Urea Nitrogen 14 mg/dL (8-23); Calcium 9.9 mg/dL (8.5-10.5); Carbon Dioxide 25 mmol/L (22-29); Chloride 99 mmol/L (98-107); Glomerular Filtration Rate 49.5 mL/min (90-130); Glucose 101 mg/dL (65-115); Osmolality Calculated 281 mOsm/kg (285-295); Potassium 3.7 mmol/L (3.5-5.1); Sodium 135 mmol/L (136-145)
--- NOTE | 2023-10-26 12:04 | PC.SOCIAL ---
Patient being transferred out.
== END 2023-10-26 12:00 | disposition short-term general hospital (02) | DRG 95 ==
LOC: ER 15:57 → ER IP 16:01 → MEDSURG 18:20
PROVIDERS: Family Medicine; Physician Assistant; Admitting Provider Family Medicine; Emergency Provider Emergency Medicine; PCP Family Medicine; Visit Provider Family Medicine
DX: G06.0 Intracranial abscess and granuloma (principal); K92.1 Melena; I48.91 Unspecified atrial fibrillation; Z79.01 Long term (current) use of anticoagulants; E03.9 Hypothyroidism, unspecified; K80.20 Calculus of gallbladder without cholecystitis without obstruction; H54.8 Legal blindness, as defined in USA; K56.41 Fecal impaction; K62.89 Other specified diseases of anus and rectum; M35.00 Sjogren syndrome, unspecified; I73.00 Raynaud's syndrome without gangrene
CPT/HCPCS: 36415; 70450; 70480; 74177; 80048; 80053; 81003; 83605; 83690; 83880; 84145; 85025; 85610; 85651; 86140; 87040; 99285; J2405; J2543; J3372; J7030; Q9967

== ENCOUNTER → 2023-12-21 10:09 | Outpatient (BNVA) | payer MEDICARE, MEDICAID, SELFPAY | PROVIDERS: PCP Family Medicine; Visit Provider Nurse Practitioner Family | DX: I48.91 Unspecified atrial fibrillation (principal); R94.31 Abnormal electrocardiogram [ECG] [EKG] | CPT/HCPCS: 93005; 99214 ==

== ENCOUNTER → 2023-12-28 10:59 | Outpatient (BNVA) | payer MEDICARE, MEDICAID, SELFPAY | PROVIDERS: PCP Family Medicine; Visit Provider Family Medicine | DX: E03.9 Hypothyroidism, unspecified | CPT/HCPCS: 84443 ==

== ENCOUNTER → 2024-02-15 13:20 | Outpatient (BNVA) | payer MEDICARE, MEDICAID, SELFPAY | PROVIDERS: PCP Family Medicine; Visit Provider Family Medicine | DX: I48.21 Permanent atrial fibrillation (principal); Z79.01 Long term (current) use of anticoagulants; E03.9 Hypothyroidism, unspecified; G06.0 Intracranial abscess and granuloma; R55 Syncope and collapse | CPT/HCPCS: 80053; 84443; 85025 ==

== ENCOUNTER → 2024-03-30 14:01 | Outpatient (BNVA) | payer MEDICARE, MEDICAID, SELFPAY | PROVIDERS: PCP Family Medicine; Visit Provider Internal Medicine | DX: I10 Essential (primary) hypertension (principal); I48.21 Permanent atrial fibrillation; Z79.01 Long term (current) use of anticoagulants | CPT/HCPCS: 99214 ==

== ENCOUNTER → 2024-11-07 15:50 | Outpatient (BNVA) | payer MEDICARE, MEDICAID, SELFPAY | PROVIDERS: PCP Family Medicine; Visit Provider Family Medicine | DX: I48.21 Permanent atrial fibrillation (principal); I10 Essential (primary) hypertension; E03.9 Hypothyroidism, unspecified; D64.9 Anemia, unspecified; R63.5 Abnormal weight gain | CPT/HCPCS: 80053; 82607; 84443; 85025 ==

== ENCOUNTER → 2024-11-08 12:25 | Outpatient (BNVA) | payer MEDICARE, MEDICAID, SELFPAY | PROVIDERS: PCP Family Medicine; Visit Provider Family Medicine | DX: I48.21 Permanent atrial fibrillation (principal); I10 Essential (primary) hypertension; E03.9 Hypothyroidism, unspecified; D64.9 Anemia, unspecified; R63.5 Abnormal weight gain | CPT/HCPCS: 80053; 82607; 84443; 85025 ==

== ENCOUNTER 2024-11-14 14:45 | Outpatient (CLI) | payer MEDICARE, MEDICAID, SELFPAY ==
--- NOTE | 2024-11-14 15:00 | CT_ITS ---
WS: [id number] CT chest w con* [id number] HISTORY: Follow up CT, lung nodule TECHNIQUE: Axial imaging performed through the thorax. Coronal and sagittal reformats are submitted. All CT scans at [facility] use at least one of these dose optimization techniques: automated exposure control; mA and/or kV adjustment per patient size (includes targeted exams where dose is mat ched to clinical indication); or iterative reconstruction. CONTRAST: Omnipaque 350; 100 mL IV. DLP: 487.48 mGy.cm COMPARISON: 10/25/2023 Lungs and central airway: Reidentified is a 7 mm groundglass nodule in the RIGHT middle lobe adjacent to the fissure which is unchanged in size and appearance. There is been no increase in consolidation or size. No additional mass or nodules. No pneumonia. Noncalcified 2 mm nodule LEFT upper lobe, imag e 23 of series 4. Pleura: Normal. No pleural effusion. Heart and pericardium: Normal size heart with no pericardial effusion. Mediastinum and arcadio: No mediastinum or hilar adenopathy. Vessels: Mild atherosclerosis aorta. Normal size aorta. Mildly dilated pulmonary artery. Chest wall and lower neck: No soft tissue masses. Upper abdomen: Small hiatal hernia. Mild hepatic steatosis. Several large stones in the gallbladder. Normal adrenal glands. Osseous structures: Mild anterior wedging of T6, T5, T9 and T11. CT/CT chest w con* [id number] IMPRESSION: 1. No change in the 7 mm groundglass nodule in the RIGHT middle lobe since 10/25. Additional microcalcification LEFT upper lobe. As recommended on the adore or CT follow-up in 3 and 5 years. Low-grade neoplasm needs to be excluded. 2. Cholelithiasis without acute cholecystitis. 3. Several thoracic spine compression fractures including T6, T5, T9 and T11.
[2024-11-14] MEDS: iohexol 350 mg/mL 500 mL Btl (per mL) IV (15:52)
== END 2024-11-14 14:46 | disposition home or self-care (01) ==
LOC: RAD 14:47
PROVIDERS: PCP Family Medicine; Visit Provider Family Medicine
DX: R91.8 Other nonspecific abnormal finding of lung field (principal); K80.20 Calculus of gallbladder without cholecystitis without obstruction; I70.0 Atherosclerosis of aorta; I28.1 Aneurysm of pulmonary artery; K44.9 Diaphragmatic hernia without obstruction or gangrene; K76.0 Fatty (change of) liver, not elsewhere classified; S22.050A Wedge compression fracture of T5-T6 vertebra, initial encounter for closed fracture; S22.070A Wedge compression fracture of T9-T10 vertebra, initial encounter for closed fracture; S22.080A Wedge compression fracture of T11-T12 vertebra, initial encounter for closed fracture; X58.XXXA Exposure to other specified factors, initial encounter
CPT/HCPCS: 71260

== ENCOUNTER → 2024-12-28 15:31 | Outpatient (BNVA) | payer MEDICARE, MEDICAID, SELFPAY | PROVIDERS: PCP Family Medicine; Visit Provider Internal Medicine | DX: I48.21 Permanent atrial fibrillation (principal); I10 Essential (primary) hypertension | CPT/HCPCS: 99214 ==

== ENCOUNTER 2025-02-19 07:39 | Outpatient (CLI) | payer MEDICARE, MEDICAID, SELFPAY ==
--- NOTE | 2025-02-19 07:45 | USCV_ITS ---
Nancy Carrero Age: 69 Gender: F : 1955 Exam Date: 02/19/2025 07:53 Ordering Phys: Lars Mehta M.D ([email or web address]) Technologist: SAMI Exam Location: [facility] [place] Indication: SoB BP: 122 / 62 HR: 74 Rhythm: Sinus Technical Quality: Adequate MEASUREMENTS (Male / Female) Normal Values 2D ECHO LV Diastolic Diameter PLAX 5.1 cm 4.2 - 5.9 / 3.9 - 5.3 cm IVS Diastolic Thickness 0.8 cm 0.6 - 1.0 / 0.6 - 0.9 cm IVS Systolic Thickness 1.6 cm LVPW Diastolic Thickness 0.7 cm 0.6 - 1.0 / 0.6 - 0.9 cm LVPW Systolic Thickness 1.5 cm LVOT Diameter 1.8 cm LV Ejection Fraction 2D Teich 64.2 % LV Ejection Fraction MOD 4C 47.7 % LV Ejection Fraction MOD 2C 56.3 % LV Ejection Fraction 2C AL 56.6 % LA Diameter 3.5 cm RA Systolic Volume 4C AL 39.8 ml RA Systolic Volume 4C MOD 37.0 ml LA Sys Volume AL 47.5 cm cubed LA Sys Volume Index AL 23.1 cm cubed/m squared Aorta at Sinotubular Diameter 2.7 cm M-MODE LA Ao Ratio MM 1.5 MV E Point Septal Separation 1.1 cm AV Cusp Separation MM 1.3 cm DOPPLER AV Peak Velocity 114.0 cm/s LVOT Peak Velocity 64.0 cm/s AV Area Cont Eq vti 1.3 cm squared AV Area Cont Eq pk 1.4 cm squared MV Peak Velocity 114.0 cm/s MV Area PHT 5.1 cm squared Mitral E to A Ratio 1.9 TV Peak Velocity 158.5 cm/s TR Peak Velocity 226.0 cm/s TR Peak Gradient 20.4 mmHg TV Peak E Velocity 98.0 cm/s PV Peak Velocity 88.0 cm/s FINDINGS Left Ventricle Technically limited quality echocardiogram because of poor ultrasonic windows. LV systolic function is normal with EF of 50-55%. No regional wall motion abnormalities are seen. Right Ventricle Grossly hypokinetic Right Atrium Normal in size Left Atrium Grossly normal in size. Echodensity seen in the left atrium but visualization very limited and is inconsistent between different views. Possibly artifact. Mitral Valve Grossly normal Aortic Valve Grossly normal aortic valve. No significant stenosis. Tricuspid Valve Trace tricuspid regurgitation. Insufficient TR jet to calculate RVSP Pulmonic Valve Not well visualized Pericardium Normal Aorta Normal in size IVC Not well visualized CONCLUSIONS Technically limited quality echocardiogram because of poor ultrasonic windows. LV systolic function is normal with EF of 50-55%. RV is grossly hypokinetic. Echodensity seen in the left atrium but visualization very limited and is inconsistent between different views. Possibly artifact. Trace tricuspid regurgitation Accurate comparison not possible because of poor visualization. Lars Mehta MD (Electronically Signed) Final Date: 02 Mar 2025 12:05 S
== END 2025-02-19 07:40 | disposition home or self-care (01) ==
PROVIDERS: PCP Family Medicine; Visit Provider Internal Medicine
DX: R06.02 Shortness of breath (principal); R93.1 Abnormal findings on diagnostic imaging of heart and coronary circulation
CPT/HCPCS: 93306

== ENCOUNTER → 2025-07-11 12:21 | Outpatient (BNVA) | payer MEDICARE, MEDICAID, SELFPAY | PROVIDERS: PCP Family Medicine; Visit Provider Internal Medicine | DX: I48.91 Unspecified atrial fibrillation (principal); Z79.01 Long term (current) use of anticoagulants; Z79.82 Long term (current) use of aspirin; I10 Essential (primary) hypertension | CPT/HCPCS: 99214 ==